=== PATIENT | female | born 1970 | race Caucasian/White ===

== ENCOUNTER → 2016-12-24 | Outpatient (REF) | payer MEDICARE, MEDICAID ==
[~2016-12-24] MED LIST: ATOR1TAB19 PO; GLUC1000 PO; GLUC500T PO; INSUDET SC; LATU20TA PO; TRAZ-136 PO; VICT18IN SC; VITA200028 PO
[2016-12-30 14:15] LABS: O+P EXAM Final report (.)
== END ==
LOC: M LAB REF 10:56
PROVIDERS: ATTEND Internal Medicine Gastroenterology
DX: R19.7 Diarrhea, unspecified (principal)

== ENCOUNTER → 2017-03-04 | Outpatient (REF) ==
--- NOTE | 2017-03-04 21:57 | REP ---
RIGHT HIP, TWO VIEWS: Two views of the right hip are performed. No acute fracture or dislocation is seen. There is linear calcification adjacent to the lesser trochanter of the proximal right femur which may represent an old avulsion fracture or a tendinous calcification. There is slight joint space narrowing with subchondral sclerosis. Signed by Priyank Dejesus MD 03/05/2017 08:32 P
--- NOTE | 2017-03-04 22:00 | REP ---
Partial lumbar spine series: Three views. History: Degenerative disc disease. Findings: Lumbar vertebral body heights are preserved. Alignment is normal. Disc spaces are maintained. There is minimal narrowing of the L4-5 disc. Pedicles and posterior elements are intact. There is a minimal curvature on the frontal radiograph. Sacrum and SI joints are intact. Impression: Minimal narrowing of the L4-5 disc. Minimal levoconvex curve upper lumbar spine. Otherwise negative. Signed by David Corado MD 03/05/2017 08:10 A
== END ==
LOC: M SMT 14:00
PROVIDERS: ATTEND Internal Medicine
DX: Z02.71 Encounter for disability determination (principal)

== ENCOUNTER 2017-03-23 15:13 | Inpatient (IN) | payer MEDICARE, MEDICAID ==
[2017-03-23] MEDS: NS 1,000 ML IV (15:45)
[2017-03-23 16:38] LABS: BASO # 0.1 10^3/uL (0.0-0.2); BASO % 0.4 % (0.0-1.0); EOS # 0.3 10^3/uL (0.0-0.50); EOS % 1.7 % (0.0-3.0); HEMATOCRIT 44.6 % (36.0-47.0); HEMOGLOBIN 15.5 g/dl (12.0-16.0); IMMATURE GRANULOCYTE # 0.1 10^3/uL (0-0); IMMATURE GRANULOCYTE % 0.6 % (0-0); LYMPH # 3.4 10^3/uL (1.5-4.5); LYMPH % 20.7 % (24.0-44.0); MEAN CORPUSCULAR HEMOGLOBIN 28.7 pg (27.0-33.0); MEAN CORPUSCULAR HGB CONC 34.8 g/dl (32.0-36.5); MEAN CORPUSCULAR VOLUME 82.4 fl (80.0-96.0); MONO # 0.6 10^3/uL (0.0-0.8); MONO % 3.8 % (0.0-5.0); NEUTROPHILS # 11.9 10^3/uL (1.8-7.7); NEUTROPHILS % 72.8 % (36.0-66.0); PLATELET COUNT, AUTOMATED 421 10^3/uL (150-450); RED BLOOD COUNT 5.41 10^6/uL (4.00-5.40); WHITE BLOOD COUNT 16.4 10^3/uL (4.0-10.0)
[2017-03-23 16:55] LABS: INR 1.12; PROTHROMBIN TIME 14.6 SECONDS (12.4-14.5)
[2017-03-23 17:00] LABS: PARTIAL THROMBOPLASTIN TIME 26.3 SECONDS (26.8-37.9)
[2017-03-23 17:17] LABS: ALBUMIN 2.5 GM/DL (3.2-5.2); ALBUMIN/GLOBULIN RATIO 0.66 (1.00-1.93); ALKALINE PHOSPHATASE 138 U/L (45-117); ALT/SGPT 13 U/L (12-78); ANION GAP 9 MEQ/L (8-16); AST/SGOT 20 U/L (7-37); BILIRUBIN,DIRECT 0.3 MG/DL (0.0-0.2); BILIRUBIN,TOTAL 0.7 MG/DL (0.2-1.0); BLOOD UREA NITROGEN 3 MG/DL (7-18); CALCIUM LEVEL 8.3 MG/DL (8.5-10.1); CARBON DIOXIDE LEVEL 36 MEQ/L (21-32); CHLORIDE LEVEL 95 MEQ/L (98-107); CPK CREATINE PHOSPHOKINASE 37 U/L (26-192); GLOMERULAR FILTRATION RATE > 60.0 (>58); GLUCOSE, FASTING 191 MG/DL (70-105); SODIUM LEVEL 140 MEQ/L (136-145); TOTAL PROTEIN 6.3 GM/DL (6.4-8.2); TROPONIN I < 0.02 NG/ML (< 0.10)
[2017-03-23 17:23] LABS: POTASSIUM SERUM 1.4 MEQ/L (3.5-5.1)
[2017-03-23] MEDS: POTASSIUM CHL PWD 20 MEQ PACKET PO (17:45)
[2017-03-23] MEDS: KCL 10MEQ IN 100ML SWI (KRUN) 10 MEQ in APPROPRIATE DILUENT 1 EA IV ×2 (17:45→18:08)
[2017-03-23 18:10] LABS: MAGNESIUM LEVEL 2.1 MG/DL (1.8-2.4)
[2017-03-23 19:00] LABS: VITAMIN B12 LEVEL 619 PG/ML (247-911)
[2017-03-23] MEDS: POTASSIUM CHLORIDE 10 MEQ SR TABLET PO (19:30)
[2017-03-23 22:51] LABS: ANION GAP 7 MEQ/L (8-16); BLOOD UREA NITROGEN 4 MG/DL (7-18); CALCIUM LEVEL 7.7 MG/DL (8.5-10.1); CARBON DIOXIDE LEVEL 35 MEQ/L (21-32); CHLORIDE LEVEL 103 MEQ/L (98-107); CREATININE FOR GFR 0.75 MG/DL (0.55-1.02); GLOMERULAR FILTRATION RATE > 60.0 (>58); GLUCOSE, FASTING 145 MG/DL (70-105); MAGNESIUM LEVEL 2.2 MG/DL (1.8-2.4); POTASSIUM SERUM 2.3 MEQ/L (3.5-5.1); SODIUM LEVEL 145 MEQ/L (136-145)
[2017-03-24] MEDS: KCL 10MEQ IN 100ML SWI (KRUN) 10 MEQ in APPROPRIATE DILUENT 1 EA IV ×2 (03:00→05:45)
[2017-03-24] MEDS: KCL 20MEQ IN 0.45NS 1000ML 1,000 ML IV ×2 (03:15→13:33)
[2017-03-24] MEDS ORDERED: ONDANSETRON 4MG/2ML VIAL (J2405) IV (05:15)
[2017-03-24] MEDS ORDERED: ALBUTEROL 90 MCG/ACT 8GM HFA INHALER INH (05:15)
[2017-03-24] MEDS: POTASSIUM CHLORIDE 10 MEQ SR TABLET PO ×6 (06:31→16:38)
[2017-03-24 07:23] LABS: BASO % 0.2 % (0.0-1.0); EOS # 0.3 10^3/uL (0.0-0.50); EOS % 2.5 % (0.0-3.0); HEMATOCRIT 37.5 % (36.0-47.0); IMMATURE GRANULOCYTE # 0.1 10^3/uL (0-0); IMMATURE GRANULOCYTE % 0.6 % (0-0); LYMPH # 2.3 10^3/uL (1.5-4.5); LYMPH % 18.3 % (24.0-44.0); MEAN CORPUSCULAR HEMOGLOBIN 28.7 pg (27.0-33.0); MEAN CORPUSCULAR HGB CONC 33.9 g/dl (32.0-36.5); MEAN CORPUSCULAR VOLUME 84.8 fl (80.0-96.0); MONO # 0.4 10^3/uL (0.0-0.8); MONO % 3.2 % (0.0-5.0); NEUTROPHILS # 9.4 10^3/uL (1.8-7.7); NEUTROPHILS % 75.2 % (36.0-66.0); PLATELET COUNT, AUTOMATED 337 10^3/uL (150-450); RED BLOOD COUNT 4.42 10^6/uL (4.00-5.40); RED CELL DISTRIBUTION WIDTH 14.2 % (11.5-14.5); WHITE BLOOD COUNT 12.5 10^3/uL (4.0-10.0)
[2017-03-24 07:30] LABS: HEMOGLOBIN 12.7 g/dl (12.0-16.0)
[2017-03-24 07:37] LABS: MAGNESIUM LEVEL 2.1 MG/DL (1.8-2.4)
[2017-03-24 07:41] LABS: ANION GAP 8 MEQ/L (8-16); BLOOD UREA NITROGEN 4 MG/DL (7-18); CALCIUM LEVEL 7.6 MG/DL (8.5-10.1); CARBON DIOXIDE LEVEL 35 MEQ/L (21-32); CHLORIDE LEVEL 101 MEQ/L (98-107); GLOMERULAR FILTRATION RATE > 60.0 (>58); GLUCOSE, FASTING 189 MG/DL (70-105); POTASSIUM SERUM 2.4 MEQ/L (3.5-5.1); SODIUM LEVEL 144 MEQ/L (136-145)
[2017-03-24] MEDS: glipiZIDE (GLUCOTROL) 5 MG TAB PO (07:55)
[2017-03-24] MEDS ORDERED: GLUCOSE 4 GM CHEW TABLET PO (08:00)
[2017-03-24] MEDS ORDERED: GLUCAGON FOR INJ 1 MG VIAL (J1610) SC (08:00)
[2017-03-24] MEDS ORDERED: DEXTROSE 50% 50 ML SYRINGE IV (08:00)
[2017-03-24] MEDS: ENOXAPARIN 40 MG/0.4 ML SYRINGE (J1650) SC (08:55)
[2017-03-24] MEDS: traMADol 50 MG TAB PO (08:56)
[2017-03-24 12:11] LABS: BEDSIDE GLUCOSE 116 MG/DL (70-105)
[2017-03-24 14:18] LABS: POTASSIUM SERUM 2.8 MEQ/L (3.5-5.1)
[2017-03-24 16:55] LABS: BEDSIDE GLUCOSE 141 MG/DL (70-105)
[2017-03-24] MEDS: ATORVASTATIN 10 MG TAB PO (20:10)
[2017-03-24 22:29] LABS: POTASSIUM SERUM 3.1 MEQ/L (3.5-5.1)
[2017-03-25] MEDS: POTASSIUM CHLORIDE 10 MEQ SR TABLET PO ×2 (01:19→02:23)
[2017-03-25] MEDS: KCL 20MEQ IN 0.45NS 1000ML 1,000 ML IV (02:24)
[2017-03-25 07:07] LABS: BEDSIDE GLUCOSE 100 MG/DL (70-105)
[2017-03-25 07:17] LABS: BASO % 0.2 % (0.0-1.0); EOS # 0.3 10^3/uL (0.0-0.50); HEMATOCRIT 35.5 % (36.0-47.0); HEMOGLOBIN 11.8 g/dl (12.0-16.0); IMMATURE GRANULOCYTE % 0.4 % (0-0); LYMPH # 2.5 10^3/uL (1.5-4.5); MEAN CORPUSCULAR HEMOGLOBIN 28.6 pg (27.0-33.0); MEAN CORPUSCULAR HGB CONC 33.2 g/dl (32.0-36.5); MEAN CORPUSCULAR VOLUME 86.2 fl (80.0-96.0); MONO # 0.3 10^3/uL (0.0-0.8); MONO % 2.9 % (0.0-5.0); NEUTROPHILS # 5.8 10^3/uL (1.8-7.7); NEUTROPHILS % 65.5 % (36.0-66.0); PLATELET COUNT, AUTOMATED 273 10^3/uL (150-450); RED BLOOD COUNT 4.12 10^6/uL (4.00-5.40); RED CELL DISTRIBUTION WIDTH 14.5 % (11.5-14.5); WHITE BLOOD COUNT 8.9 10^3/uL (4.0-10.0)
[2017-03-25 07:59] LABS: ANION GAP 7 MEQ/L (8-16); BLOOD UREA NITROGEN 3 MG/DL (7-18); CALCIUM LEVEL 7.7 MG/DL (8.5-10.1); CARBON DIOXIDE LEVEL 31 MEQ/L (21-32); CHLORIDE LEVEL 109 MEQ/L (98-107); CREATININE FOR GFR 0.53 MG/DL (0.55-1.02); GLOMERULAR FILTRATION RATE > 60.0 (>58); GLUCOSE, FASTING 97 MG/DL (70-105); POTASSIUM SERUM 4.2 MEQ/L (3.5-5.1); SODIUM LEVEL 147 MEQ/L (136-145)
[2017-03-25] MEDS: glipiZIDE (GLUCOTROL) 5 MG TAB PO (08:47)
[2017-03-25] MEDS: ENOXAPARIN 40 MG/0.4 ML SYRINGE (J1650) SC (08:48)
[2017-03-25] MEDS: traMADol 50 MG TAB PO (08:48)
[2017-03-25] MEDS ORDERED: GLUCAGON FOR INJ 1 MG VIAL (J1610) SC (11:30)
[2017-03-25] MEDS ORDERED: GLUCOSE 4 GM CHEW TABLET PO (11:30)
[2017-03-25] MEDS ORDERED: DEXTROSE 50% 50 ML SYRINGE IV (11:30)
[2017-03-25 12:58] LABS: BEDSIDE GLUCOSE 140 MG/DL (70-105)
[2017-03-25] MEDS: HumaLOG INSULIN (NovoLOG) PER UNIT SC ×3 (13:16→21:41)
[2017-03-25 16:47] LABS: BEDSIDE GLUCOSE 179 MG/DL (70-105)
[2017-03-25] MEDS: BISACODYL 5 MG TAB PO (18:06)
[2017-03-25] MEDS: GOLYTELY SOLN 4000 ML BTL PO (18:07)
[2017-03-25 21:08] LABS: BEDSIDE GLUCOSE 175 MG/DL (70-105)
[2017-03-25] MEDS: ATORVASTATIN 10 MG TAB PO (21:26)
[2017-03-25] MEDS: GASTROGRAFIN SOLUTION 30ML (Q9963) PO (21:26)
[2017-03-25 22:04] LABS: ANION GAP 7 MEQ/L (8-16); BLOOD UREA NITROGEN 4 MG/DL (7-18); CALCIUM LEVEL 7.9 MG/DL (8.5-10.1); CARBON DIOXIDE LEVEL 31 MEQ/L (21-32); CHLORIDE LEVEL 107 MEQ/L (98-107); CREATININE FOR GFR 0.52 MG/DL (0.55-1.02); GLOMERULAR FILTRATION RATE > 60.0 (>58); GLUCOSE, FASTING 139 MG/DL (70-105); MAGNESIUM LEVEL 2.1 MG/DL (1.8-2.4); POTASSIUM SERUM 3.9 MEQ/L (3.5-5.1); SODIUM LEVEL 145 MEQ/L (136-145)
[2017-03-25 22:56] LABS: OSMOLALITY URINE 170 MOSM/KG (500-800)
[2017-03-25 23:05] LABS: CREATININE,RANDOM URINE 28.3 MG/DL; POTASSIUM RANDOM URINE 21.3 MEQ/L; SODIUM,RANDOM URINE 29 MEQ/L
[2017-03-25 23:14] LABS: APPEARANCE, URINE CLEAR (CLEAR); BACTERIA, URINE AUTO 1+ (NEGATIVE); BILIRUBIN, URINE AUTO NEGATIVE (NEGATIVE); BLOOD, URINE BLOOD 1+ (NEGATIVE); COLOR, URINE YELLOW (YELLOW); GLUCOSE, URINE (UA) AUTO NEGATIVE (NEGATIVE); KETONE, URINE AUTO NEGATIVE (NEGATIVE); LEUKOCYTE ESTERASE, URINE AUTO 2+ (NEGATIVE); NITRITE, URINE AUTO NEGATIVE (NEGATIVE); PROTEIN, URINE AUTO NEGATIVE (NEGATIVE); RBC, URINE AUTO 1 /HPF (0-3); SPECIFIC GRAVITY URINE AUTO 1.004 (1.002-1.035); SQUAMOUS EPITHELIAL CELL UR AU 2 /HPF (0-6); UROBILINOGEN, URINE AUTO 0.2 mg/dL (0.0-2.0); WBC, URINE AUTO 35 /HPF (0-3)
[2017-03-26 05:53] LABS: BASO % 0.2 % (0.0-1.0); EOS # 0.3 10^3/uL (0.0-0.50); EOS % 2.2 % (0.0-3.0); HEMATOCRIT 34.9 % (36.0-47.0); HEMOGLOBIN 11.7 g/dl (12.0-16.0); IMMATURE GRANULOCYTE # 0.1 10^3/uL (0-0); IMMATURE GRANULOCYTE % 0.6 % (0-0); LYMPH # 2.2 10^3/uL (1.5-4.5); LYMPH % 17.8 % (24.0-44.0); MEAN CORPUSCULAR HEMOGLOBIN 28.7 pg (27.0-33.0); MEAN CORPUSCULAR HGB CONC 33.5 g/dl (32.0-36.5); MEAN CORPUSCULAR VOLUME 85.7 fl (80.0-96.0); MONO # 0.4 10^3/uL (0.0-0.8); MONO % 3.4 % (0.0-5.0); NEUTROPHILS # 9.3 10^3/uL (1.8-7.7); NEUTROPHILS % 75.8 % (36.0-66.0); PLATELET COUNT, AUTOMATED 255 10^3/uL (150-450); RED BLOOD COUNT 4.07 10^6/uL (4.00-5.40); RED CELL DISTRIBUTION WIDTH 14.6 % (11.5-14.5); WHITE BLOOD COUNT 12.3 10^3/uL (4.0-10.0)
[2017-03-26 06:21] LABS: ANION GAP 8 MEQ/L (8-16); BLOOD UREA NITROGEN 3 MG/DL (7-18); CALCIUM LEVEL 7.5 MG/DL (8.5-10.1); CARBON DIOXIDE LEVEL 29 MEQ/L (21-32); CHLORIDE LEVEL 106 MEQ/L (98-107); CREATININE FOR GFR 0.47 MG/DL (0.55-1.02); GLOMERULAR FILTRATION RATE > 60.0 (>58); GLUCOSE, FASTING 78 MG/DL (70-105); POTASSIUM SERUM 3.3 MEQ/L (3.5-5.1); SODIUM LEVEL 143 MEQ/L (136-145)
[2017-03-26] MEDS ORDERED: KCL 10MEQ IN 100ML SWI (KRUN) 10 MEQ in APPROPRIATE DILUENT 1 EA IV (08:00)
[2017-03-26] MEDS: HumaLOG INSULIN (NovoLOG) PER UNIT SC ×4 (08:15→21:00)
[2017-03-26] MEDS: CIPROFLOXACIN 400 MG in APPROPRIATE DILUENT 1 EA IV ×2 (08:46→21:10)
[2017-03-26] MEDS: POTASSIUM CHLORIDE 10 MEQ SR TABLET PO ×3 (10:00→18:45)
[2017-03-26] MEDS: metroNIDAZOLE 500 MG in APPROPRIATE DILUENT 1 EA IV ×2 (11:30→17:13)
[2017-03-26 11:46] LABS: BEDSIDE GLUCOSE 90 MG/DL (70-105)
[2017-03-26] MEDS ORDERED: LIDOCAINE 2% INJ 100 MG/5 ML SYRINGE As Ordered (15:20)
[2017-03-26] MEDS ORDERED: PROPOFOL 500 MG/50 ML VIAL As Ordered (15:20)
[2017-03-26] MEDS ORDERED: PHENYLephrine HCL 500 MCG/5 ML (100MCG/ML) SYRINGE (J2370) As Ordered (15:30)
[2017-03-26] MEDS ORDERED: PROPOFOL 200 MG/20 ML VIAL As Ordered ×2 (16:01→16:02)
[2017-03-26] MEDS: traMADol 50 MG TAB PO (17:27)
[2017-03-26 17:42] LABS: BEDSIDE GLUCOSE 145 MG/DL (70-105)
[2017-03-26] MEDS: ATORVASTATIN 10 MG TAB PO (21:21)
[2017-03-26 21:24] LABS: BEDSIDE GLUCOSE 192 MG/DL (70-105)
[2017-03-27] MEDS: metroNIDAZOLE 500 MG in APPROPRIATE DILUENT 1 EA IV ×3 (01:21→16:29)
[2017-03-27 05:38] LABS: BASO % 0.2 % (0.0-1.0); EOS % 0.6 % (0.0-3.0); HEMATOCRIT 30.7 % (36.0-47.0); HEMOGLOBIN 10.3 g/dl (12.0-16.0); IMMATURE GRANULOCYTE % 0.4 % (0-0); LYMPH # 0.8 10^3/uL (1.5-4.5); LYMPH % 15.3 % (24.0-44.0); MEAN CORPUSCULAR HEMOGLOBIN 28.6 pg (27.0-33.0); MEAN CORPUSCULAR HGB CONC 33.6 g/dl (32.0-36.5); MEAN CORPUSCULAR VOLUME 85.3 fl (80.0-96.0); MONO # 0.2 10^3/uL (0.0-0.8); MONO % 4.1 % (0.0-5.0); NEUTROPHILS # 4.3 10^3/uL (1.8-7.7); NEUTROPHILS % 79.4 % (36.0-66.0); PLATELET COUNT, AUTOMATED 172 10^3/uL (150-450); RED CELL DISTRIBUTION WIDTH 14.9 % (11.5-14.5); WHITE BLOOD COUNT 5.4 10^3/uL (4.0-10.0)
[2017-03-27 06:02] LABS: ANION GAP 7 MEQ/L (8-16); BLOOD UREA NITROGEN 3 MG/DL (7-18); CALCIUM LEVEL 7.3 MG/DL (8.5-10.1); CARBON DIOXIDE LEVEL 29 MEQ/L (21-32); CHLORIDE LEVEL 107 MEQ/L (98-107); CREATININE FOR GFR 0.54 MG/DL (0.55-1.02); GLOMERULAR FILTRATION RATE > 60.0 (>58); GLUCOSE, FASTING 100 MG/DL (70-105); POTASSIUM SERUM 3.2 MEQ/L (3.5-5.1); SODIUM LEVEL 143 MEQ/L (136-145)
[2017-03-27] MEDS: HumaLOG INSULIN (NovoLOG) PER UNIT SC ×4 (07:30→21:00)
[2017-03-27] MEDS: traMADol 50 MG TAB PO (08:22)
[2017-03-27] MEDS: POTASSIUM CHLORIDE 10 MEQ SR TABLET PO ×3 (08:23→21:50)
[2017-03-27] MEDS: CIPROFLOXACIN 400 MG in APPROPRIATE DILUENT 1 EA IV (08:23)
[2017-03-27] MEDS: ENOXAPARIN 40 MG/0.4 ML SYRINGE (J1650) SC (10:12)
[2017-03-27 11:57] LABS: BEDSIDE GLUCOSE 96 MG/DL (70-105)
[2017-03-27] MEDS ORDERED: GASTROGRAFIN SOLUTION 30ML (Q9963) As Ordered (13:10)
[2017-03-27] MEDS ORDERED: SLF 3 ML SYR IV ×3 (14:15→22:00)
[2017-03-27 16:53] LABS: BEDSIDE GLUCOSE 96 MG/DL (70-105)
[2017-03-27] MEDS: CIPROFLOXACIN 500 MG TAB PO (17:36)
[2017-03-27 20:56] LABS: BEDSIDE GLUCOSE 103 MG/DL (70-105)
[2017-03-27] MEDS: ATORVASTATIN 10 MG TAB PO (21:49)
[2017-03-27] MEDS: metroNIDAZOLE (FLAGYL) 500 MG TAB PO (21:49)
[2017-03-27] MEDS: SLF 3 ML SYR IV (21:51)
[2017-03-28] MEDS: metroNIDAZOLE (FLAGYL) 500 MG TAB PO ×3 (05:26→21:00)
[2017-03-28] MEDS: SLF 3 ML SYR IV ×3 (05:26→21:01)
[2017-03-28] MEDS: CIPROFLOXACIN 500 MG TAB PO ×2 (05:26→17:38)
[2017-03-28 05:55] LABS: BASO % 0.2 % (0.0-1.0); EOS # 0.2 10^3/uL (0.0-0.50); HEMATOCRIT 35.1 % (36.0-47.0); HEMOGLOBIN 11.6 g/dl (12.0-16.0); IMMATURE GRANULOCYTE % 0.5 % (0-0); LYMPH # 0.9 10^3/uL (1.5-4.5); LYMPH % 20.4 % (24.0-44.0); MEAN CORPUSCULAR HEMOGLOBIN 28.6 pg (27.0-33.0); MEAN CORPUSCULAR VOLUME 86.5 fl (80.0-96.0); MONO # 0.2 10^3/uL (0.0-0.8); MONO % 5.7 % (0.0-5.0); NEUTROPHILS # 2.9 10^3/uL (1.8-7.7); NEUTROPHILS % 69.2 % (36.0-66.0); PLATELET COUNT, AUTOMATED 196 10^3/uL (150-450); RED BLOOD COUNT 4.06 10^6/uL (4.00-5.40); RED CELL DISTRIBUTION WIDTH 15.1 % (11.5-14.5); WHITE BLOOD COUNT 4.2 10^3/uL (4.0-10.0)
[2017-03-28 06:13] LABS: ANION GAP 5 MEQ/L (8-16); BLOOD UREA NITROGEN 3 MG/DL (7-18); CALCIUM LEVEL 7.8 MG/DL (8.5-10.1); CARBON DIOXIDE LEVEL 29 MEQ/L (21-32); CHLORIDE LEVEL 111 MEQ/L (98-107); CREATININE FOR GFR 0.54 MG/DL (0.55-1.02); GLOMERULAR FILTRATION RATE > 60.0 (>58); GLUCOSE, FASTING 98 MG/DL (70-105); SODIUM LEVEL 145 MEQ/L (136-145)
[2017-03-28] MEDS: HumaLOG INSULIN (NovoLOG) PER UNIT SC ×4 (08:16→20:44)
[2017-03-28] MEDS: ENOXAPARIN 40 MG/0.4 ML SYRINGE (J1650) SC (09:00)
[2017-03-28] MEDS: traMADol 50 MG TAB PO (10:12)
[2017-03-28] MEDS: POTASSIUM CHLORIDE 10 MEQ SR TABLET PO (10:12)
[2017-03-28 12:11] LABS: BEDSIDE GLUCOSE 142 MG/DL (70-105)
[2017-03-28 17:02] LABS: BEDSIDE GLUCOSE 87 MG/DL (70-105)
[2017-03-28 20:49] LABS: BEDSIDE GLUCOSE 115 MG/DL (70-105)
[2017-03-28] MEDS: ATORVASTATIN 10 MG TAB PO (21:00)
[2017-03-29] MEDS: CIPROFLOXACIN 500 MG TAB PO ×2 (05:00→17:35)
[2017-03-29] MEDS: metroNIDAZOLE (FLAGYL) 500 MG TAB PO ×3 (05:00→21:13)
[2017-03-29] MEDS: SLF 3 ML SYR IV ×3 (05:00→21:12)
[2017-03-29 06:10] LABS: BASO % 0.8 % (0.0-1.0); EOS # 0.2 10^3/uL (0.0-0.50); EOS % 6.4 % (0.0-3.0); HEMOGLOBIN 10.8 g/dl (12.0-16.0); LYMPH # 1.3 10^3/uL (1.5-4.5); LYMPH % 36.6 % (24.0-44.0); MEAN CORPUSCULAR HEMOGLOBIN 28.4 pg (27.0-33.0); MEAN CORPUSCULAR HGB CONC 32.7 g/dl (32.0-36.5); MEAN CORPUSCULAR VOLUME 86.8 fl (80.0-96.0); MONO # 0.2 10^3/uL (0.0-0.8); MONO % 6.4 % (0.0-5.0); NEUTROPHILS # 1.8 10^3/uL (1.8-7.7); NEUTROPHILS % 49.8 % (36.0-66.0); PLATELET COUNT, AUTOMATED 209 10^3/uL (150-450); RED CELL DISTRIBUTION WIDTH 15.2 % (11.5-14.5); WHITE BLOOD COUNT 3.6 10^3/uL (4.0-10.0)
[2017-03-29 06:37] LABS: ANION GAP 6 MEQ/L (8-16); BLOOD UREA NITROGEN 3 MG/DL (7-18); CALCIUM LEVEL 7.6 MG/DL (8.5-10.1); CARBON DIOXIDE LEVEL 29 MEQ/L (21-32); CHLORIDE LEVEL 111 MEQ/L (98-107); CREATININE FOR GFR 0.52 MG/DL (0.55-1.02); GLOMERULAR FILTRATION RATE > 60.0 (>58); GLUCOSE, FASTING 100 MG/DL (70-105); POTASSIUM SERUM 3.7 MEQ/L (3.5-5.1); SODIUM LEVEL 146 MEQ/L (136-145)
[2017-03-29] MEDS: HumaLOG INSULIN (NovoLOG) PER UNIT SC ×4 (07:24→20:40)
[2017-03-29 08:13] LABS: MAGNESIUM LEVEL 1.9 MG/DL (1.8-2.4)
[2017-03-29] MEDS: POTASSIUM CHLORIDE 10 MEQ SR TABLET PO ×2 (08:37→17:36)
[2017-03-29] MEDS: traMADol 50 MG TAB PO (08:37)
[2017-03-29 10:08] LABS: COPPER PLASMA 83 ug/dL (72-166); LEAD BLOOD ADULT 2 ug/dL (0-19); MERCURY LEVEL None Detected ug/L (0.0-14.9); VITAMIN B1 LEVEL WHOLE BLOOD 99.1 nmol/L (66.5-200.0); VITAMIN E LEVEL 7.5 mg/L (5.3-16.8)
[2017-03-29 11:43] LABS: BEDSIDE GLUCOSE 135 MG/DL (70-105)
[2017-03-29 16:46] LABS: BEDSIDE GLUCOSE 100 MG/DL (70-105)
[2017-03-29 20:36] LABS: BEDSIDE GLUCOSE 126 MG/DL (70-105)
[2017-03-29] MEDS: ATORVASTATIN 10 MG TAB PO (21:13)
[2017-03-30] MEDS: CIPROFLOXACIN 500 MG TAB PO ×2 (06:21→17:22)
[2017-03-30] MEDS: SLF 3 ML SYR IV ×3 (06:21→21:12)
[2017-03-30] MEDS: metroNIDAZOLE (FLAGYL) 500 MG TAB PO ×3 (06:21→21:14)
[2017-03-30 06:55] LABS: BASO % 0.4 % (0.0-1.0); EOS # 0.3 10^3/uL (0.0-0.50); EOS % 5.8 % (0.0-3.0); HEMATOCRIT 39.7 % (36.0-47.0); IMMATURE GRANULOCYTE % 0.5 % (0-0); LYMPH # 2.1 10^3/uL (1.5-4.5); LYMPH % 38.6 % (24.0-44.0); MEAN CORPUSCULAR HEMOGLOBIN 28.6 pg (27.0-33.0); MEAN CORPUSCULAR HGB CONC 32.7 g/dl (32.0-36.5); MEAN CORPUSCULAR VOLUME 87.4 fl (80.0-96.0); MONO # 0.3 10^3/uL (0.0-0.8); MONO % 6.1 % (0.0-5.0); NEUTROPHILS # 2.7 10^3/uL (1.8-7.7); NEUTROPHILS % 48.6 % (36.0-66.0); PLATELET COUNT, AUTOMATED 322 10^3/uL (150-450); RED BLOOD COUNT 4.54 10^6/uL (4.00-5.40); RED CELL DISTRIBUTION WIDTH 15.6 % (11.5-14.5); WHITE BLOOD COUNT 5.6 10^3/uL (4.0-10.0)
[2017-03-30 07:11] LABS: ANION GAP 7 MEQ/L (8-16); BLOOD UREA NITROGEN 2 MG/DL (7-18); CALCIUM LEVEL 8.1 MG/DL (8.5-10.1); CARBON DIOXIDE LEVEL 28 MEQ/L (21-32); CHLORIDE LEVEL 111 MEQ/L (98-107); CREATININE FOR GFR 0.64 MG/DL (0.55-1.02); GLOMERULAR FILTRATION RATE > 60.0 (>58); GLUCOSE, FASTING 99 MG/DL (70-105); MAGNESIUM LEVEL 2.1 MG/DL (1.8-2.4); SODIUM LEVEL 146 MEQ/L (136-145)
[2017-03-30] MEDS: HumaLOG INSULIN (NovoLOG) PER UNIT SC ×4 (07:22→20:51)
[2017-03-30] MEDS ORDERED: GASTROGRAFIN SOLUTION 30ML (Q9963) As Ordered (07:45)
[2017-03-30] MEDS: ENOXAPARIN 40 MG/0.4 ML SYRINGE (J1650) SC (09:00)
[2017-03-30] MEDS: ACETAMINOPHEN TAB 650MG DOSE (2X325MG) PO (09:44)
[2017-03-30] MEDS: POTASSIUM CHLORIDE 10 MEQ SR TABLET PO (09:45)
[2017-03-30] MEDS: traMADol 50 MG TAB PO (10:09)
[2017-03-30 12:06] LABS: BEDSIDE GLUCOSE 116 MG/DL (70-105)
[2017-03-30 17:12] LABS: BEDSIDE GLUCOSE 96 MG/DL (70-105)
[2017-03-30] MEDS: ATORVASTATIN 10 MG TAB PO (21:14)
[2017-03-30 21:21] LABS: BEDSIDE GLUCOSE 118 MG/DL (70-105)
[2017-03-31] MEDS: SLF 3 ML SYR IV ×3 (05:52→20:55)
[2017-03-31] MEDS: metroNIDAZOLE (FLAGYL) 500 MG TAB PO ×3 (06:00→20:54)
[2017-03-31] MEDS: CIPROFLOXACIN 500 MG TAB PO ×2 (06:00→17:43)
[2017-03-31] MEDS: HumaLOG INSULIN (NovoLOG) PER UNIT SC ×4 (07:30→20:51)
[2017-03-31 08:38] LABS: ANION GAP 5 MEQ/L (8-16); BLOOD UREA NITROGEN 2 MG/DL (7-18); CALCIUM LEVEL 7.9 MG/DL (8.5-10.1); CARBON DIOXIDE LEVEL 27 MEQ/L (21-32); CHLORIDE LEVEL 110 MEQ/L (98-107); CREATININE FOR GFR 0.62 MG/DL (0.55-1.02); GLOMERULAR FILTRATION RATE > 60.0 (>58); GLUCOSE, FASTING 97 MG/DL (70-105); MAGNESIUM LEVEL 1.9 MG/DL (1.8-2.4); POTASSIUM SERUM 3.9 MEQ/L (3.5-5.1); SODIUM LEVEL 142 MEQ/L (136-145)
[2017-03-31] MEDS: POTASSIUM CHLORIDE 10 MEQ SR TABLET PO (09:10)
[2017-03-31] MEDS: traMADol 50 MG TAB PO (09:11)
[2017-03-31] MEDS: ENOXAPARIN 40 MG/0.4 ML SYRINGE (J1650) SC (09:12)
[2017-03-31 12:04] LABS: BEDSIDE GLUCOSE 156 MG/DL (70-105)
[2017-03-31 16:43] LABS: BEDSIDE GLUCOSE 104 MG/DL (70-105)
[2017-03-31] MEDS: ATORVASTATIN 10 MG TAB PO (20:55)
[2017-04-01] MEDS: SLF 3 ML SYR IV ×3 (05:55→21:31)
[2017-04-01] MEDS: CIPROFLOXACIN 500 MG TAB PO ×2 (05:56→17:50)
[2017-04-01] MEDS: metroNIDAZOLE (FLAGYL) 500 MG TAB PO ×3 (05:56→21:37)
[2017-04-01 06:32] LABS: MAGNESIUM LEVEL 2.2 MG/DL (1.8-2.4)
[2017-04-01] MEDS: HumaLOG INSULIN (NovoLOG) PER UNIT SC ×4 (07:22→21:00)
[2017-04-01 08:34] LABS: BEDSIDE GLUCOSE 99 MG/DL (70-105)
[2017-04-01 08:34] LABS: BEDSIDE GLUCOSE 83 MG/DL (70-105)
[2017-04-01] MEDS: ENOXAPARIN 40 MG/0.4 ML SYRINGE (J1650) SC (09:00)
[2017-04-01] MEDS: traMADol 50 MG TAB PO (09:13)
[2017-04-01] MEDS: POTASSIUM CHLORIDE 10 MEQ SR TABLET PO (09:14)
[2017-04-01] MEDS: SODIUM CHLORIDE 0.9% 1000 ML IV (14:15)
[2017-04-01] MEDS: ATORVASTATIN 10 MG TAB PO (21:37)
[2017-04-01] MEDS: ACETAMINOPHEN TAB 650MG DOSE (2X325MG) PO (21:37)
[2017-04-02] MEDS: SLF 3 ML SYR IV ×2 (06:00→14:18)
[2017-04-02] MEDS: CIPROFLOXACIN 500 MG TAB PO (06:32)
[2017-04-02] MEDS: metroNIDAZOLE (FLAGYL) 500 MG TAB PO ×2 (06:32→14:38)
[2017-04-02 07:03] LABS: MAGNESIUM LEVEL 2.1 MG/DL (1.8-2.4)
[2017-04-02] MEDS: traMADol 50 MG TAB PO (09:33)
[2017-04-02] MEDS: HumaLOG INSULIN (NovoLOG) PER UNIT SC ×2 (09:34→12:49)
[2017-04-02] MEDS: POTASSIUM CHLORIDE 10 MEQ SR TABLET PO (09:34)
[2017-04-02] MEDS: ENOXAPARIN 40 MG/0.4 ML SYRINGE (J1650) SC (09:34)
[2017-04-02 13:36] LABS: BEDSIDE GLUCOSE 144 MG/DL (70-105)
[2017-04-02 13:37] LABS: BEDSIDE GLUCOSE 72 MG/DL (70-105)
[2017-04-02 13:37] LABS: BEDSIDE GLUCOSE 128 MG/DL (70-105)
[2017-04-02 13:37] LABS: BEDSIDE GLUCOSE 140 MG/DL (70-105)
[2017-04-02 13:37] LABS: BEDSIDE GLUCOSE 88 MG/DL (70-105)
[2017-04-02 13:37] LABS: BEDSIDE GLUCOSE 106 MG/DL (70-105)
[2017-04-02 13:37] LABS: BEDSIDE GLUCOSE 124 MG/DL (70-105)
== END 2017-04-02 16:14 | disposition home or self-care (01) | DRG 392 ==
LOC: M MSPAV 03-27 15:13 → M ED INP 03-24 01:14 → M PCU 03-24 14:49 → M ED 15:13
PROC: 0DB98ZX Excision of Duodenum, Via Natural or Artificial Opening Endoscopic, Diagnostic (ICD-10-PCS; principal; 2017-03-26 14:30)
PROC: 0DBN8ZZ Excision of Sigmoid Colon, Via Natural or Artificial Opening Endoscopic (ICD-10-PCS; 2017-03-26 14:30)
DX: R19.7 Diarrhea, unspecified (principal); E87.6 Hypokalemia; E11.9 Type 2 diabetes mellitus without complications; E78.5 Hyperlipidemia, unspecified; J45.909 Unspecified asthma, uncomplicated; Z79.84 Long term (current) use of oral hypoglycemic drugs; Z79.899 Other long term (current) drug therapy; Z88.0 Allergy status to penicillin; Z91.018 Allergy to other foods; Z88.8 Allergy status to other drugs, medicaments and biological substances; K44.9 Diaphragmatic hernia without obstruction or gangrene; K57.30 Diverticulosis of large intestine without perforation or abscess without bleeding; D12.5 Benign neoplasm of sigmoid colon; K64.8 Other hemorrhoids; K64.4 Residual hemorrhoidal skin tags

== ENCOUNTER 2017-04-19 19:52 | Emergency (ER) | payer MEDICARE, MEDICAID ==
[2017-04-19 20:46] LABS: HEMATOCRIT 41.2 % (36.0-47.0); HEMOGLOBIN 14.1 g/dl (12.0-16.0); MEAN CORPUSCULAR HEMOGLOBIN 30.3 pg (27.0-33.0); MEAN CORPUSCULAR HGB CONC 34.2 g/dl (32.0-36.5); MEAN CORPUSCULAR VOLUME 88.6 fl (80.0-96.0); PLATELET COUNT, AUTOMATED 340 10^3/uL (150-450); RED BLOOD COUNT 4.65 10^6/uL (4.00-5.40); RED CELL DISTRIBUTION WIDTH 16.9 % (11.5-14.5); WHITE BLOOD COUNT 11.4 10^3/uL (4.0-10.0)
[2017-04-19 21:07] LABS: ANION GAP 7 MEQ/L (8-16); BLOOD UREA NITROGEN 5 MG/DL (7-18); CALCIUM LEVEL 8.7 MG/DL (8.5-10.1); CARBON DIOXIDE LEVEL 33 MEQ/L (21-32); CHLORIDE LEVEL 101 MEQ/L (98-107); CREATININE FOR GFR 0.65 MG/DL (0.55-1.30); GLOMERULAR FILTRATION RATE > 60.0 (>58); GLUCOSE, FASTING 250 MG/DL (70-100); POTASSIUM SERUM 2.8 MEQ/L (3.5-5.1); SODIUM LEVEL 141 MEQ/L (136-145)
[2017-04-19 21:30] LABS: APPEARANCE, URINE HAZY (CLEAR); BACTERIA, URINE AUTO NEGATIVE (NEGATIVE); BILIRUBIN, URINE AUTO 1+ (NEGATIVE); BLOOD, URINE BLOOD NEGATIVE (NEGATIVE); CALCIUM OXALATE CRYSTALS MODERATE; COLOR, URINE AMBER (YELLOW); GLUCOSE, URINE (UA) AUTO NEGATIVE (NEGATIVE); KETONE, URINE AUTO NEGATIVE (NEGATIVE); LEUKOCYTE ESTERASE, URINE AUTO TRACE (NEGATIVE); MUCUS, URINE SMALL (NEGATIVE); NITRITE, URINE AUTO NEGATIVE (NEGATIVE); PROTEIN, URINE AUTO NEGATIVE (NEGATIVE); RBC, URINE AUTO 2 /HPF (0-3); SPECIFIC GRAVITY URINE AUTO 1.016 (1.002-1.035); SQUAMOUS EPITHELIAL CELL UR AU 4 /HPF (0-6); WBC, URINE AUTO 11 /HPF (0-3)
[2017-04-19 21:34] LABS: BASO % 0.4 % (0.0-1.0); EOS # 0.1 10^3/uL (0.0-0.50); IMMATURE GRANULOCYTE % 0.4 % (0-0); LYMPH % 8.5 % (24.0-44.0); MONO # 0.4 10^3/uL (0.0-0.8); MONO % 3.3 % (0.0-5.0); NEUTROPHILS # 9.7 10^3/uL (1.8-7.7); NEUTROPHILS % 86.4 % (36.0-66.0)
[2017-04-19 21:38] LABS: MAGNESIUM LEVEL 2.2 MG/DL (1.8-2.4)
[2017-04-19] MEDS: ONDANSETRON 4 MG ORAL DISINTEGRATING TAB (S0181) PO (22:01)
[2017-04-19] MEDS: metroNIDAZOLE (FLAGYL) 500 MG TAB PO (22:02)
[2017-04-19] MEDS: POTASSIUM CHLORIDE 10 MEQ SR TABLET PO (22:02)
[2017-04-19] MEDS: LevoFLOXacin 750 MG TABLET PO (22:02)
[2017-04-19] MEDS: PERCOCET 5MG/325MG TAB PO (22:05)
== END 2017-04-19 22:50 | disposition home or self-care (01) ==
LOC: M ED 19:52
DX: K57.32 Diverticulitis of large intestine without perforation or abscess without bleeding (principal); E87.6 Hypokalemia; E11.9 Type 2 diabetes mellitus without complications; F31.9 Bipolar disorder, unspecified; F41.9 Anxiety disorder, unspecified; F25.9 Schizoaffective disorder, unspecified; J45.909 Unspecified asthma, uncomplicated; G89.29 Other chronic pain; M54.5 Low back pain; Z79.899 Other long term (current) drug therapy; Z79.51 Long term (current) use of inhaled steroids; Z79.84 Long term (current) use of oral hypoglycemic drugs; Z88.0 Allergy status to penicillin; Z88.8 Allergy status to other drugs, medicaments and biological substances; Z91.018 Allergy to other foods; F17.210 Nicotine dependence, cigarettes, uncomplicated
CPT/HCPCS: 83735

== ENCOUNTER → 2018-05-11 | Outpatient (REF) | payer OTHER, MEDICAID ==
[~2018-05-11] MED LIST changes: +BACITAB PO; +BREO1INH PO; +CIPR500T3 PO; +ERGO500014 PO; +FLAG500T PO; +GLIP5TAB8 PO; +IMOD2TAB16 PO; +KLOR10TA76 PO; +LEVO750T13 PO; +METR-201 PO; +POTA1TAB14 PO; +TRAM50TA2 PO; -TRAZ-136 PO; +TRAZ-163 PO; +VENTAER PO
[2018-05-11 13:34] LABS: BASO % 0.4 % (0.0-1.0); EOS # 0.4 10^3/uL (0.0-0.50); HEMATOCRIT 45.3 % (36.0-47.0); HEMOGLOBIN 15.3 g/dl (12.0-15.5); LYMPH # 1.8 10^3/uL (1.5-4.5); LYMPH % 19.1 % (24.0-44.0); MEAN CORPUSCULAR HEMOGLOBIN 28.1 pg (27.0-33.0); MEAN CORPUSCULAR HGB CONC 33.8 g/dl (32.0-36.5); MEAN CORPUSCULAR VOLUME 83.1 fl (80.0-96.0); MONO # 0.4 10^3/uL (0.0-0.8); MONO % 4.1 % (0.0-5.0); NEUTROPHILS # 6.8 10^3/uL (1.8-7.7); PLATELET COUNT, AUTOMATED 231 10^3/uL (150-450); RED BLOOD COUNT 5.45 10^6/uL (4.00-5.40); WHITE BLOOD COUNT 9.5 10^3/uL (4.0-10.0)
[2018-05-11 14:04] LABS: HEMOGLOBIN A1c 8.7 %
[2018-05-11 14:36] LABS: ALBUMIN 3.6 GM/DL (3.2-5.2); ALT/SGPT 15 U/L (12-78); BILIRUBIN,TOTAL 0.5 MG/DL (0.2-1.0); BLOOD UREA NITROGEN 5 MG/DL (7-18); CALCIUM LEVEL 8.7 MG/DL (8.5-10.1); CARBON DIOXIDE LEVEL 27 MEQ/L (21-32); CHLORIDE LEVEL 98 MEQ/L (98-107); CHOLESTEROL LEVEL 159 MG/DL (<200); CHOLESTEROL RISK RATIO 4.076 (<5); CREATININE FOR GFR 0.76 MG/DL (0.55-1.30); FREE T4 1.23 NG/DL (0.76-1.46); GLOMERULAR FILTRATION RATE > 60.0 (>58); GLUCOSE, FASTING 318 MG/DL (70-100); HDL CHOLESTEROL 39 MG/DL (>40); LDL CHOLESTEROL 93 MG/DL (<100); NON-HDL-C 120 MG/DL; POTASSIUM SERUM 4.4 MEQ/L (3.5-5.1); SODIUM LEVEL 134 MEQ/L (136-145); TOTAL PROTEIN 6.9 GM/DL (6.4-8.2); TRIGLYCERIDES LEVEL 134 MG/DL (<150)
== END ==
LOC: M SFHCPLAZ 11:45
PROVIDERS: ATTEND Physician Assistant Medical
DX: F25.1 Schizoaffective disorder, depressive type (principal); J44.9 Chronic obstructive pulmonary disease, unspecified; E11.9 Type 2 diabetes mellitus without complications; Z13.220 Encounter for screening for lipoid disorders

== ENCOUNTER 2018-06-30 11:45 | Outpatient (RCR) | payer MEDICARE, MEDICAID ==
[~2018-06-30 11:45] MED LIST changes: -ERGO500014 PO; -METR-201 PO; +METR-265 PO; +VITA500045 PO
== END 2018-07-13 ==
LOC: M PT 11:45
PROVIDERS: ATTEND Physician Assistant Medical
DX: N39.3 Stress incontinence (female) (male) (principal)

== ENCOUNTER → 2019-01-27 | Outpatient (REF) | payer MEDICARE, MEDICAID ==
[2019-01-27 13:43] LABS: BASO % 0.4 % (0.0-1.0); EOS # 0.3 10^3/uL (0.0-0.5); EOS % 3.4 % (0.0-3.0); HEMATOCRIT 52.3 % (36.0-47.0); HEMOGLOBIN 17.6 g/dl (12.0-15.5); LYMPH % 20.1 % (24.0-44.0); MEAN CORPUSCULAR HEMOGLOBIN 28.8 pg (27.0-33.0); MEAN CORPUSCULAR HGB CONC 33.7 g/dl (32.0-36.5); MEAN CORPUSCULAR VOLUME 85.5 fl (80.0-96.0); MONO # 0.4 10^3/uL (0.0-0.8); MONO % 3.5 % (0.0-5.0); NEUTROPHILS # 7.3 10^3/uL (1.5-8.5); NEUTROPHILS % 72.2 % (36.0-66.0); PLATELET COUNT, AUTOMATED 264 10^3/uL (150-450); RED BLOOD COUNT 6.12 10^6/uL (4.00-5.40); WHITE BLOOD COUNT 10.1 10^3/uL (4.0-10.0)
[2019-01-27 13:58] LABS: ALBUMIN 4.3 GM/DL (3.2-5.2); ALT/SGPT 23 U/L (12-78); BILIRUBIN,TOTAL 1.1 MG/DL (0.2-1.0); BLOOD UREA NITROGEN 6 MG/DL (7-18); CALCIUM LEVEL 9.6 MG/DL (8.5-10.1); CARBON DIOXIDE LEVEL 29 MEQ/L (21-32); CHLORIDE LEVEL 98 MEQ/L (98-107); CHOLESTEROL LEVEL 171 MG/DL (<200); FREE T4 1.34 NG/DL (0.76-1.46); GLOMERULAR FILTRATION RATE > 60.0 (>58); GLUCOSE, FASTING 379 MG/DL (70-100); HDL CHOLESTEROL 45 MG/DL (>40); LDL CHOLESTEROL 91 MG/DL (<100); NON-HDL-C 126 MG/DL; POTASSIUM SERUM 4.2 MEQ/L (3.5-5.1); SODIUM LEVEL 135 MEQ/L (136-145); TOTAL 25(OH) VITAMIN D 16.2 NG/ML (30.0-100.0); TOTAL PROTEIN 7.9 GM/DL (6.4-8.2); TRIGLYCERIDES LEVEL 173 MG/DL (<150)
[2019-01-27 14:03] LABS: HEMOGLOBIN A1c 11.2 %
== END ==
LOC: M LAB REF 12:46
PROVIDERS: ATTEND Nurse Practitioner Family
DX: E78.5 Hyperlipidemia, unspecified (principal); E11.9 Type 2 diabetes mellitus without complications; R00.0 Tachycardia, unspecified; Z13.9 Encounter for screening, unspecified; Z79.899 Other long term (current) drug therapy

== ENCOUNTER → 2019-01-31 | Outpatient (CLI) | payer MEDICARE, MEDICAID ==
--- NOTE | 2019-01-31 10:59 | REP ---
Bilateral shoulder series: Six views. History: Bilateral shoulder joint pain. Findings: The glenohumeral and acromioclavicular joints are normally aligned bilaterally. Periarticular soft tissues are unremarkable. No fracture or subluxation is seen. Impression: Negative radiographs of the shoulders bilaterally. Electronically Signed by David Corado MD 01/31/2019 10:51 A
--- NOTE | 2019-01-31 11:00 | REP ---
Chest x-ray: Two views. History: Cough. Comparison study March 23, 2017. Findings: The lungs are symmetrically aerated and clear. Pleural angles are sharp. Cardiomediastinal silhouette and bony thorax are unremarkable. Impression: Negative chest x-ray. Electronically Signed by David Corado MD 01/31/2019 10:51 A
== END ==
LOC: M RAD 09:57
PROVIDERS: ATTEND Nurse Practitioner Family
DX: R05 Cough (principal)

== ENCOUNTER 2019-02-03 15:48 | Emergency (ER) | payer MEDICARE, MEDICAID ==
[~2019-02-03] VITALS: Ht 157.5 cm; Wt 90.9 kg
[2019-02-03] MEDS ORDERED: BREO1INH3 (15:57)
[2019-02-03] MEDS ORDERED: JANU25TA (15:58)
[2019-02-03] MEDS ORDERED: GLIM1TAB2 (15:58)
[2019-02-03] MEDS ORDERED: DESV50TA3 (15:58)
[2019-02-03] MEDS: ALBUTEROL SULFATE 2.5 MG/0.5 ML INH NEB SOLN NEB PRN ×3 (16:35→17:24)
--- NOTE | 2019-02-03 17:05 | REP ---
Chest x-ray: Two views. History: Increased shortness of breath over the last 3 days . Comparison study: January 31, 2019 . Findings: The lungs are well inflated and free of infiltrate. The pleural angles are sharp. The heart size is normal. Pulmonary vasculature is not increased. No significant bony abnormality is seen. Impression: Negative chest x-ray. Electronically Signed by David Corado MD 02/03/2019 04:56 P
[2019-02-03] MEDS ORDERED: PRED20TA PO ×2 (17:20→17:42)
[2019-02-03 17:39] VITALS: BP 119/60
== END 2019-02-03 17:43 | disposition home or self-care (01) ==
LOC: M ED 15:48
DX: J44.1 Chronic obstructive pulmonary disease with (acute) exacerbation (principal); E11.9 Type 2 diabetes mellitus without complications; J45.909 Unspecified asthma, uncomplicated; F17.200 Nicotine dependence, unspecified, uncomplicated; Z79.899 Other long term (current) drug therapy; Z88.0 Allergy status to penicillin; Z88.8 Allergy status to other drugs, medicaments and biological substances; Z91.018 Allergy to other foods

== ENCOUNTER → 2019-04-29 | Outpatient (REF) | payer MEDICARE, MEDICAID ==
[~2019-04-29] MED LIST changes: +BREO1INH3; +DESV50TA3; +GLIM1TAB4; +JANU25TA; +PRED20TA PO; -TRAZ-163 PO; +TRAZ-257 PO
[2019-04-29 12:41] LABS: BASO % 0.5 % (0.0-1.0); EOS # 0.1 10^3/uL (0.0-0.5); EOS % 1.6 % (0.0-3.0); HEMATOCRIT 51.3 % (36.0-47.0); HEMOGLOBIN 16.4 g/dl (12.0-15.5); LYMPH # 1.4 10^3/uL (1.5-5.0); LYMPH % 18.7 % (24.0-44.0); MEAN CORPUSCULAR HEMOGLOBIN 27.6 pg (27.0-33.0); MEAN CORPUSCULAR VOLUME 86.2 fl (80.0-96.0); MONO # 0.3 10^3/uL (0.0-0.8); MONO % 3.7 % (0.0-5.0); NEUTROPHILS # 5.8 10^3/uL (1.5-8.5); NEUTROPHILS % 75.1 % (36.0-66.0); PLATELET COUNT, AUTOMATED 238 10^3/uL (150-450); RED BLOOD COUNT 5.95 10^6/uL (4.00-5.40); WHITE BLOOD COUNT 7.7 10^3/uL (4.0-10.0)
[2019-04-29 12:45] LABS: ALBUMIN 4.2 GM/DL (3.2-5.2); ALT/SGPT 19 U/L (12-78); BILIRUBIN,TOTAL 0.7 MG/DL (0.2-1.0); BLOOD UREA NITROGEN 10 MG/DL (7-18); CALCIUM LEVEL 9.3 MG/DL (8.5-10.1); CARBON DIOXIDE LEVEL 31 MEQ/L (21-32); CHLORIDE LEVEL 102 MEQ/L (98-107); CHOLESTEROL LEVEL 156 MG/DL (<200); CHOLESTEROL RISK RATIO 3.466 (<5); CREATININE FOR GFR 0.74 MG/DL (0.55-1.30); GLOMERULAR FILTRATION RATE > 60.0 (>58); GLUCOSE, FASTING 232 MG/DL (70-100); HDL CHOLESTEROL 45 MG/DL (>40); LDL CHOLESTEROL 85 MG/DL (<100); NON-HDL-C 111 MG/DL; POTASSIUM SERUM 4.2 MEQ/L (3.5-5.1); SODIUM LEVEL 139 MEQ/L (136-145); TOTAL PROTEIN 7.5 GM/DL (6.4-8.2); TRIGLYCERIDES LEVEL 129 MG/DL (<150)
[2019-04-29 12:53] LABS: TOTAL 25(OH) VITAMIN D 56.9 NG/ML (30.0-100.0)
[2019-04-29 13:06] LABS: HEMOGLOBIN A1c 8.2 %
== END ==
LOC: M LAB REF 11:35
PROVIDERS: ATTEND Nurse Practitioner Family
DX: E55.9 Vitamin D deficiency, unspecified (principal); F17.200 Nicotine dependence, unspecified, uncomplicated; Z13.9 Encounter for screening, unspecified; M25.511 Pain in right shoulder; E11.9 Type 2 diabetes mellitus without complications; E78.5 Hyperlipidemia, unspecified; R00.0 Tachycardia, unspecified

== ENCOUNTER → 2019-08-03 | Outpatient (REF) | payer MEDICARE, MEDICAID ==
[2019-08-03 13:27] LABS: BASO % 0.2 % (0.0-1.0); EOS % 0.4 % (0.0-3.0); HEMATOCRIT 49.6 % (36.0-47.0); HEMOGLOBIN 16.4 g/dl (12.0-15.5); LYMPH # 1.7 10^3/uL (1.5-5.0); LYMPH % 18.1 % (24.0-44.0); MEAN CORPUSCULAR HEMOGLOBIN 28.6 pg (27.0-33.0); MEAN CORPUSCULAR HGB CONC 33.1 g/dl (32.0-36.5); MEAN CORPUSCULAR VOLUME 86.6 fl (80.0-96.0); MONO # 0.4 10^3/uL (0.0-0.8); MONO % 4.4 % (0.0-5.0); NEUTROPHILS # 7.2 10^3/uL (1.5-8.5); NEUTROPHILS % 76.3 % (36.0-66.0); PLATELET COUNT, AUTOMATED 239 10^3/uL (150-450); RED BLOOD COUNT 5.73 10^6/uL (4.00-5.40); WHITE BLOOD COUNT 9.4 10^3/uL (4.0-10.0)
[2019-08-03 13:42] LABS: ALBUMIN 3.7 GM/DL (3.2-5.2); ALT/SGPT 19 U/L (12-78); BILIRUBIN,TOTAL 0.6 MG/DL (0.2-1.0); BLOOD UREA NITROGEN 9 MG/DL (7-18); CARBON DIOXIDE LEVEL 27 MEQ/L (21-32); CHLORIDE LEVEL 103 MEQ/L (98-107); CHOLESTEROL LEVEL 186 MG/DL (<200); CHOLESTEROL RISK RATIO 4.894 (<5); CREATININE FOR GFR 0.86 MG/DL (0.55-1.30); FREE T4 1.15 NG/DL (0.76-1.46); GLOMERULAR FILTRATION RATE > 60.0 (>51); GLUCOSE, FASTING 197 MG/DL (70-100); HDL CHOLESTEROL 38 MG/DL (>40); LDL CHOLESTEROL 126 MG/DL (<100); NON-HDL-C 148 MG/DL; POTASSIUM SERUM 4.5 MEQ/L (3.5-5.1); SODIUM LEVEL 137 MEQ/L (136-145); TOTAL PROTEIN 6.8 GM/DL (6.4-8.2); TRIGLYCERIDES LEVEL 108 MG/DL (<150)
[2019-08-03 13:51] LABS: TOTAL 25(OH) VITAMIN D 32.6 NG/ML (30.0-100.0)
[2019-08-03 13:53] LABS: HEMOGLOBIN A1c 9.7 %
== END ==
LOC: M LAB REF 12:59
PROVIDERS: ATTEND Nurse Practitioner Family
DX: E55.9 Vitamin D deficiency, unspecified (principal); E11.9 Type 2 diabetes mellitus without complications; E78.5 Hyperlipidemia, unspecified; R00.0 Tachycardia, unspecified; Z13.9 Encounter for screening, unspecified; M25.511 Pain in right shoulder; F17.200 Nicotine dependence, unspecified, uncomplicated

== ENCOUNTER → 2020-01-04 | Outpatient (REF) | payer MEDICARE, MEDICAID ==
[2020-01-04 12:30] LABS: BASO % 0.4 % (0.0-1.0); EOS # 0.2 10^3/uL (0.0-0.5); EOS % 2.4 % (0.0-3.0); HEMATOCRIT 48.9 % (36.0-47.0); HEMOGLOBIN 16.2 g/dl (12.0-15.5); LYMPH # 1.4 10^3/uL (1.5-5.0); LYMPH % 19.7 % (24.0-44.0); MEAN CORPUSCULAR HEMOGLOBIN 27.1 pg (27.0-33.0); MEAN CORPUSCULAR HGB CONC 33.1 g/dl (32.0-36.5); MEAN CORPUSCULAR VOLUME 81.9 fl (80.0-96.0); MONO # 0.3 10^3/uL (0.0-0.8); MONO % 4.3 % (0.0-5.0); NEUTROPHILS # 5.3 10^3/uL (1.5-8.5); NEUTROPHILS % 72.8 % (36.0-66.0); PLATELET COUNT, AUTOMATED 260 10^3/uL (150-450); RED BLOOD COUNT 5.97 10^6/uL (4.00-5.40); WHITE BLOOD COUNT 7.2 10^3/uL (4.0-10.0)
[2020-01-04 12:58] LABS: ALBUMIN 3.6 GM/DL (3.2-5.2); ALT/SGPT 11 U/L (12-78); BILIRUBIN,TOTAL 0.8 MG/DL (0.2-1.0); BLOOD UREA NITROGEN 12 MG/DL (7-18); CALCIUM LEVEL 9.5 MG/DL (8.5-10.1); CARBON DIOXIDE LEVEL 28 MEQ/L (21-32); CHLORIDE LEVEL 98 MEQ/L (98-107); CHOLESTEROL LEVEL 213 MG/DL (<200); CHOLESTEROL RISK RATIO 6.085 (<5); CREATININE FOR GFR 0.96 MG/DL (0.55-1.30); GLOMERULAR FILTRATION RATE > 60.0 (>51); GLUCOSE, FASTING 386 MG/DL (70-100); HDL CHOLESTEROL 35 MG/DL (>40); LDL CHOLESTEROL 138 MG/DL (<100); NON-HDL-C 178 MG/DL; POTASSIUM SERUM 4.5 MEQ/L (3.5-5.1); SODIUM LEVEL 133 MEQ/L (136-145); TOTAL PROTEIN 6.9 GM/DL (6.4-8.2); TRIGLYCERIDES LEVEL 199 MG/DL (<150)
[2020-01-04 13:06] LABS: HEMOGLOBIN A1c 11.2 %
== END ==
LOC: M LAB REF 11:34
PROVIDERS: ATTEND Nurse Practitioner Family
DX: F41.8 Other specified anxiety disorders (principal); E11.9 Type 2 diabetes mellitus without complications; R00.0 Tachycardia, unspecified; E78.5 Hyperlipidemia, unspecified; Z13.9 Encounter for screening, unspecified; F17.200 Nicotine dependence, unspecified, uncomplicated

== ENCOUNTER 2020-11-30 15:17 | Emergency (ER) | payer MEDICARE, MEDICAID ==
[~2020-11-30] VITALS: Ht 154.9 cm; Wt 81.8 kg
[~2020-11-30 15:17] MED LIST changes: -KLOR10TA76 PO; +POTA-136 PO
[2020-11-30 15:19] VITALS: BP 134/76
== END 2020-11-30 15:32 | disposition left against medical advice (07) ==
LOC: M ED 15:17
DX: Z53.21 Procedure and treatment not carried out due to patient leaving prior to being seen by health care provider (principal)

== ENCOUNTER 2021-08-27 19:49 | Inpatient (IN) | payer MEDICARE, MEDICAID ==
[~2021-08-27] VITALS: Ht 157.5 cm; Wt 78.8 kg
[2021-08-27] MEDS ORDERED: NS 1,000 ML IV ONE ×2 (20:05→23:00)
[2021-08-27] MEDS ORDERED: MORPHINE 2 MG/ML 1ML VIAL IV PRN ×2 (20:20→23:45)
[2021-08-27] MEDS ORDERED: VANCOMYCIN HCL 1,000 MG, VIAL MATE ADAPTER 1 EACH in NS 250 ML IV ONE (20:20)
[2021-08-27 20:22] LABS: VENOUS BASE EXCESS -8.3 (-2.0-2.0); VENOUS HCO3 17.3 MEQ/L (23.0-27.0); VENOUS O2 SATURATION 83.3 % (60.0-80.0); VENOUS PARTIAL PRESSURE CO2 36.2 mmHg (38.0-50.0); VENOUS PARTIAL PRESSURE O2 47.8 mmHg (30.0-50.0); VENOUS PH 7.296 UNITS (7.330-7.430); VENOUS STANDARD HCO3 17.6 MEQ/L; VENOUS TOTAL CO2 18.4 MEQ/L (24.0-28.0)
[2021-08-27 20:26] LABS: BASO # 0.1 10^3/uL (0.0-0.2); BASO % 0.4 % (0.0-1.0); EOS # 0.1 10^3/uL (0.0-0.5); EOS % 0.3 % (0.0-3.0); HEMATOCRIT 43.1 % (36.0-47.0); HEMOGLOBIN 15.5 g/dl (12.0-15.5); LYMPH # 0.7 10^3/uL (1.5-5.0); LYMPH % 4.2 % (24.0-44.0); MEAN CORPUSCULAR HEMOGLOBIN 29.9 pg (27.0-33.0); MEAN CORPUSCULAR VOLUME 83.2 fl (80.0-96.0); MONO # 0.9 10^3/uL (0.0-0.8); MONO % 5.4 % (2.0-8.0); NEUTROPHILS # 15.3 10^3/uL (1.5-8.5); NEUTROPHILS % 88.7 % (36.0-66.0); PLATELET COUNT, AUTOMATED 332 10^3/uL (150-450); RED BLOOD COUNT 5.18 10^6/uL (4.00-5.40); WHITE BLOOD COUNT 17.3 10^3/uL (4.0-10.0)
[2021-08-27 20:53] LABS: HEMOGLOBIN A1c 11.9 %
[2021-08-27 20:55] LABS: CK-MB VALUE MASS < 1.0 NG/ML (<3.6); CPK CREATINE PHOSPHOKINASE 23 U/L (26-192); MB/CK RELATIVE INDEX 4.35 (< OR =4)
[2021-08-27] MEDS: ATORVASTATIN 10 MG TAB PO SCH (21:00)
[2021-08-27 21:01] LABS: ALBUMIN 2.6 GM/DL (3.2-5.2); ALT/SGPT < 6 U/L (12-78); BILIRUBIN,DIRECT 0.4 MG/DL (0.0-0.2); BILIRUBIN,TOTAL 0.7 MG/DL (0.2-1.0); BLOOD UREA NITROGEN 31 MG/DL (7-18); CALCIUM LEVEL 8.8 MG/DL (8.5-10.1); CARBON DIOXIDE LEVEL 18 MEQ/L (21-32); CHLORIDE LEVEL 92 MEQ/L (98-107); CREATININE FOR GFR 1.49 MG/DL (0.55-1.30); ETHYL ALCOHOL (ETHANOL) < 0.003 % (0.000-0.010); GLOMERULAR FILTRATION RATE 39.1 (>51); GLUCOSE, FASTING 675 MG/DL (70-100); LIPASE 46 U/L (73-393); SODIUM LEVEL 126 MEQ/L (136-145); TOTAL PROTEIN 6.6 GM/DL (6.4-8.2)
[2021-08-27 21:10] LABS: OSMOLALITY SERUM 301 MOSM/KG (275-295)
[2021-08-27 21:15] LABS: RSV AMPLIFICATION NEGATIVE (NEGATIVE)
[2021-08-27] MEDS ORDERED: NS 1,290 ML in IV 1 EA IV ONE (21:20)
[2021-08-27] MEDS ORDERED: LevoFLOXacin IV 750 MG in IV 1 EA IV ONE (21:20)
[2021-08-27] MEDS ORDERED: HumuLIN R (REGULAR) INSULIN (NovoLIN R) **100U/ML** PER UNIT IV ONE (21:25)
[2021-08-27] MEDS ORDERED: INSULIN REGULAR IN 0.9 % NACL 100 UNIT in IV 1 EA IV SCH ×4 (22:10→23:00)
[2021-08-27] MEDS ORDERED: INSULIN IV RATE CHANGE DOCUMENTATION ML/HR XX SCH ×2 (22:10→23:00)
[2021-08-27] MEDS ORDERED: LIDOCAINE W/EPINEPHRINE 1% 20ML VIAL As Ordered ONE ×2 (22:41→23:00)
[2021-08-27] MEDS ORDERED: ALBUTEROL SULFATE 2.5 MG/0.5 ML INH NEB SOLN NEB PRN (23:00)
[2021-08-27] MEDS ORDERED: INVE6TAB3 PO (23:02)
[2021-08-27] MEDS ORDERED: OXYB5TAB10 PO (23:02)
[2021-08-27] MEDS ORDERED: MIDAZOLAM INJ 2MG/2ML VIAL (J2250 PER 1MG) As Ordered ONE (23:02)
[2021-08-27] MEDS ORDERED: DESV100T PO (23:02)
[2021-08-27] MEDS ORDERED: propofoL 500 MG/50 ML VIAL As Ordered ONE (23:02)
[2021-08-27] MEDS ORDERED: IBUP-1764 PO (23:02)
[2021-08-27] MEDS ORDERED: OMEP-173 PO (23:02)
[2021-08-27] MEDS ORDERED: ADV250INH INH (23:02)
[2021-08-27] MEDS ORDERED: ATOR1TAB19 PO (23:02)
[2021-08-27] MEDS ORDERED: INSULANT SC (23:02)
[2021-08-27] MEDS ORDERED: fentaNYL 100 MCG/2 ML INJECTION As Ordered ONE (23:03)
[2021-08-27] MEDS ORDERED: LIDOCAINE 2% 100MG/5ML SDV (FOR ANES.) As Ordered ONE (23:04)
[2021-08-27] MEDS ORDERED: HOME MED LIST COMPLETE! XX SCH (23:05)
[2021-08-27] MEDS ORDERED: PHENYLephrine 500MCG 5ML (100MCG/ML) SYRINGE As Ordered ONE (23:20)
[2021-08-27] MEDS ORDERED: ONDANSETRON 4MG/2ML VIAL As Ordered ONE (23:21)
[2021-08-27] MEDS ORDERED: ACETAMINOPHEN 1000MG 100ML IV BTL (OFIRMEV) (J0131 PER 10MG) As Ordered ONE (23:21)
[2021-08-27] MEDS ORDERED: KETOROLAC 60MG 2ML VIAL As Ordered ONE (23:21)
[2021-08-27] MEDS ORDERED: LR 1,000 ML IV SCH (23:45)
[2021-08-27] MEDS ORDERED: fentaNYL 100 MCG/2 ML INJECTION IV PRN (23:45)
[2021-08-27] MEDS ORDERED: ONDANSETRON 4MG/2ML VIAL IV PRN (23:45)
[2021-08-27] MEDS ORDERED: oxyCODONE 5MG TAB PO PRN (23:45)
[2021-08-27] MEDS ORDERED: INSULIN LISPRO (NovoLOG) PER UNIT SC PRN (23:45)
[2021-08-28] VITALS (15 sets, daily range): BP systolic 80–107; BP diastolic 43–59
[2021-08-28] MEDS ORDERED: KETOROLAC 30 MG/ML 1ML VIAL IV PRN (02:30)
[2021-08-28] MEDS ORDERED: POTASSIUM CHLORIDE 10% LIQ 20 MEQ/15 ML UDC PO ONE ×2 (02:30→02:33)
[2021-08-28] MEDS ORDERED: SODIUM CHLORIDE 0.9% 1000ML IV ONE (02:33)
[2021-08-28] MEDS ORDERED: KETOROLAC 30 MG/ML 1ML VIAL As Ordered ONE (03:01)
[2021-08-28] MEDS ORDERED: POTASSIUM CHLORIDE 10% LIQ 20 MEQ/15 ML UDC As Ordered ONE (03:07)
[2021-08-28] MEDS ORDERED: LEVEMIR (INSULIN DETEMIR) 1 UNITS/0.01ML As Ordered ONE (03:10)
[2021-08-28 03:23] LABS: CALCIUM LEVEL 8.2 MG/DL (8.5-10.1); CREATININE FOR GFR 1.28 MG/DL (0.55-1.30); GLOMERULAR FILTRATION RATE 46.6 (>51); PHOSPHORUS LEVEL 2.6 MG/DL (2.5-4.9); POTASSIUM SERUM 3.2 MEQ/L (3.5-5.1)
[2021-08-28 03:24] LABS: CREATININE FOR GFR 1.16 MG/DL (0.55-1.30); GLOMERULAR FILTRATION RATE 52.2 (>51); PHOSPHORUS LEVEL 2.2 MG/DL (2.5-4.9); POTASSIUM SERUM 2.9 MEQ/L (3.5-5.1)
[2021-08-28] MEDS ORDERED: LEVEMIR (INSULIN DETEMIR) 1 UNITS/0.01ML SC SCH (03:30)
[2021-08-28] MEDS ORDERED: DEXTROSE 50% 50 ML SYRINGE IV PRN (04:40)
[2021-08-28] MEDS ORDERED: GLUCAGON INJ 1MG VIAL SC PRN (04:40)
[2021-08-28] MEDS ORDERED: GLUCOSE 4GM CHEW TABLET PO PRN (04:40)
[2021-08-28] MEDS ORDERED: VANCOMYCIN HCL 1,000 MG, VIAL MATE ADAPTER 1 EACH in NS 250 ML IV ONE (05:00)
[2021-08-28] MEDS ORDERED: KCL 40MEQ in NS 1000ML 1,000 ML IV SCH (05:00)
[2021-08-28] MEDS: HEPARIN SOD (PORCINE) 5000UNITS/ML 1ML VIAL/SYRINGE SC SCH ×3 (06:20→20:41)
[2021-08-28 07:27] LABS: CALCIUM LEVEL 7.7 MG/DL (8.5-10.1); CREATININE FOR GFR 1.08 MG/DL (0.55-1.30); GLOMERULAR FILTRATION RATE 56.7 (>51); PHOSPHORUS LEVEL 2.6 MG/DL (2.5-4.9); POTASSIUM SERUM 3.8 MEQ/L (3.5-5.1)
[2021-08-28] MEDS: oxyBUTYnin 5 MG TAB PO SCH (08:07)
[2021-08-28] MEDS: OMEPRAZOLE 20MG CAP PO SCH (08:08)
[2021-08-28] MEDS: DESVENLAFAXINE ER 50 MG TABLET (PRISTIQ) PO SCH (08:08)
[2021-08-28] MEDS: PALIPERIDONE 6 MG ER TAB (INVEGA) PO SCH (08:08)
[2021-08-28] MEDS: KETOROLAC 30 MG/ML 1ML VIAL IV PRN ×2 (08:08→17:11)
[2021-08-28] MEDS: INSULIN LISPRO (NovoLOG) PER UNIT SC SCH ×4 (08:09→20:41)
[2021-08-28] MEDS ORDERED: LR 1,000 ML IV ONE (10:30)
[2021-08-28 11:49] LABS: BLOOD UREA NITROGEN 29 MG/DL (7-18); CALCIUM LEVEL 8.5 MG/DL (8.5-10.1); CARBON DIOXIDE LEVEL 16 MEQ/L (21-32); CHLORIDE LEVEL 111 MEQ/L (98-107); CREATININE FOR GFR 0.96 MG/DL (0.55-1.30); GLOMERULAR FILTRATION RATE > 60.0 (>51); GLUCOSE, FASTING 211 MG/DL (70-100); PHOSPHORUS LEVEL 2.3 MG/DL (2.5-4.9); POTASSIUM SERUM 4.3 MEQ/L (3.5-5.1); SODIUM LEVEL 136 MEQ/L (136-145)
[2021-08-28] MEDS ORDERED: POTASSIUM CHLORIDE INJ 40 MEQ in LR 1,000 ML IV SCH (12:00)
[2021-08-28] MEDS ORDERED: ONDANSETRON 4MG/2ML VIAL IV PRN (12:10)
[2021-08-28] MEDS ORDERED: MORPHINE 2 MG/ML 1ML VIAL IV ONE (15:25)
[2021-08-28] MEDS ORDERED: MORPHINE 2 MG/ML 1ML VIAL As Ordered ONE (15:25)
[2021-08-28] MEDS ORDERED: LEVEMIR (INSULIN DETEMIR) 1 UNITS/0.01ML SC ONE (16:35)
[2021-08-28 17:19] LABS: BLOOD UREA NITROGEN 24 MG/DL (7-18); CALCIUM LEVEL 7.8 MG/DL (8.5-10.1); CARBON DIOXIDE LEVEL 19 MEQ/L (21-32); CHLORIDE LEVEL 110 MEQ/L (98-107); CREATININE FOR GFR 0.84 MG/DL (0.55-1.30); GLOMERULAR FILTRATION RATE > 60.0 (>51); GLUCOSE, FASTING 170 MG/DL (70-100); PHOSPHORUS LEVEL 1.4 MG/DL (2.5-4.9); POTASSIUM SERUM 4.3 MEQ/L (3.5-5.1); SODIUM LEVEL 135 MEQ/L (136-145)
[2021-08-28] MEDS: LR 1,000 ML IV SCH ×2 (17:43→23:58)
[2021-08-28] MEDS: ATORVASTATIN 10 MG TAB PO SCH (20:39)
[2021-08-28] MEDS: VANCOMYCIN HCL 1,000 MG, VIAL MATE ADAPTER 1 EACH in NS 250 ML IV SCH (20:41)
[2021-08-28] MEDS: SENNA 8.6 MG TAB (SENOKOT) PO SCH (20:45)
[2021-08-28] MEDS ORDERED: LevoFLOXacin IV 750 MG in IV 1 EA IV SCH (21:00)
[2021-08-29] VITALS (7 sets, daily range): BP systolic 90–123; BP diastolic 54–61
[2021-08-29] MEDS: KETOROLAC 30 MG/ML 1ML VIAL IV PRN ×3 (00:02→12:33)
[2021-08-29] MEDS: HEPARIN SOD (PORCINE) 5000UNITS/ML 1ML VIAL/SYRINGE SC SCH ×3 (05:14→22:00)
[2021-08-29] MEDS: LR 1,000 ML IV SCH (06:13)
[2021-08-29] MEDS: INSULIN LISPRO (NovoLOG) PER UNIT SC SCH ×4 (08:18→20:11)
[2021-08-29] MEDS: DESVENLAFAXINE ER 50 MG TABLET (PRISTIQ) PO SCH (08:19)
[2021-08-29] MEDS: PALIPERIDONE 6 MG ER TAB (INVEGA) PO SCH (08:19)
[2021-08-29] MEDS: oxyBUTYnin 5 MG TAB PO SCH (08:19)
[2021-08-29] MEDS: VANCOMYCIN HCL 1,000 MG, VIAL MATE ADAPTER 1 EACH in NS 250 ML IV SCH ×2 (08:19→20:25)
[2021-08-29] MEDS: OMEPRAZOLE 20MG CAP PO SCH (08:19)
[2021-08-29 09:29] LABS: HEMATOCRIT 32.8 % (36.0-47.0); MEAN CORPUSCULAR HEMOGLOBIN 29.9 pg (27.0-33.0); MEAN CORPUSCULAR HGB CONC 35.1 g/dl (32.0-36.5); MEAN CORPUSCULAR VOLUME 85.2 fl (80.0-96.0); PLATELET COUNT, AUTOMATED 257 10^3/uL (150-450); RED BLOOD COUNT 3.85 10^6/uL (4.00-5.40); WHITE BLOOD COUNT 9.3 10^3/uL (4.0-10.0)
[2021-08-29 09:36] LABS: HEMOGLOBIN 11.5 g/dl (12.0-15.5)
[2021-08-29 09:40] LABS: BLOOD UREA NITROGEN 21 MG/DL (7-18); CALCIUM LEVEL 8.6 MG/DL (8.5-10.1); CARBON DIOXIDE LEVEL 18 MEQ/L (21-32); CHLORIDE LEVEL 111 MEQ/L (98-107); CREATININE FOR GFR 0.74 MG/DL (0.55-1.30); GLOMERULAR FILTRATION RATE > 60.0 (>51); GLUCOSE, FASTING 225 MG/DL (70-100); MAGNESIUM LEVEL 1.4 MG/DL (1.8-2.4); PHOSPHORUS LEVEL 1.9 MG/DL (2.5-4.9); POTASSIUM SERUM 4.2 MEQ/L (3.5-5.1); SODIUM LEVEL 137 MEQ/L (136-145)
[2021-08-29] MEDS ORDERED: SODIUM PHOSPHATE INJ 30 MMOL in D5W 500 ML IV ONE (10:00)
[2021-08-29] MEDS ORDERED: MAGNESIUM OXIDE 400MG TAB (MAG-OX) PO ONE (14:25)
[2021-08-29] MEDS: MORPHINE 2 MG/ML 1ML VIAL IV PRN (17:36)
[2021-08-29] MEDS: SENNA 8.6 MG TAB (SENOKOT) PO SCH ×2 (20:25→20:33)
[2021-08-29] MEDS ORDERED: diphenhydrAMINE 25MG CAP PO PRN (20:35)
[2021-08-29] MEDS ORDERED: NS 1,000 ML IV ONE (20:35)
[2021-08-29 21:06] LABS: HEMATOCRIT 32.1 % (36.0-47.0); HEMOGLOBIN 11.4 g/dl (12.0-15.5)
[2021-08-29] MEDS: MEROPENEM INJ 1 GM in IV 1 EA IV SCH (22:03)
[2021-08-29] MEDS: ATORVASTATIN 10 MG TAB PO SCH (22:03)
[2021-08-30] VITALS (7 sets, daily range): BP systolic 121–146; BP diastolic 63–70
[2021-08-30 05:24] LABS: BASO % 0.3 % (0.0-1.0); EOS % 0.1 % (0.0-3.0); HEMATOCRIT 31.6 % (36.0-47.0); HEMOGLOBIN 11.2 g/dl (12.0-15.5); LYMPH # 1.2 10^3/uL (1.5-5.0); MEAN CORPUSCULAR HEMOGLOBIN 30.2 pg (27.0-33.0); MEAN CORPUSCULAR HGB CONC 35.4 g/dl (32.0-36.5); MEAN CORPUSCULAR VOLUME 85.2 fl (80.0-96.0); MONO # 0.3 10^3/uL (0.0-0.8); NEUTROPHILS # 5.2 10^3/uL (1.5-8.5); NEUTROPHILS % 76.6 % (36.0-66.0); PLATELET COUNT, AUTOMATED 240 10^3/uL (150-450); RED BLOOD COUNT 3.71 10^6/uL (4.00-5.40); WHITE BLOOD COUNT 6.8 10^3/uL (4.0-10.0)
[2021-08-30] MEDS: MEROPENEM INJ 1 GM in IV 1 EA IV SCH ×3 (05:24→20:19)
[2021-08-30] MEDS: HEPARIN SOD (PORCINE) 5000UNITS/ML 1ML VIAL/SYRINGE SC SCH ×4 (05:24→20:19)
[2021-08-30 05:44] LABS: BLOOD UREA NITROGEN 13 MG/DL (7-18); CALCIUM LEVEL 7.8 MG/DL (8.5-10.1); CARBON DIOXIDE LEVEL 20 MEQ/L (21-32); CHLORIDE LEVEL 108 MEQ/L (98-107); CREATININE FOR GFR 0.54 MG/DL (0.55-1.30); GLOMERULAR FILTRATION RATE > 60.0 (>51); GLUCOSE, FASTING 218 MG/DL (70-100); POTASSIUM SERUM 3.9 MEQ/L (3.5-5.1); SODIUM LEVEL 136 MEQ/L (136-145)
[2021-08-30] MEDS: INSULIN LISPRO (NovoLOG) PER UNIT SC SCH ×4 (08:04→20:18)
[2021-08-30] MEDS: VANCOMYCIN HCL 1,000 MG, VIAL MATE ADAPTER 1 EACH in NS 250 ML IV SCH (08:04)
[2021-08-30] MEDS: DESVENLAFAXINE ER 50 MG TABLET (PRISTIQ) PO SCH (08:30)
[2021-08-30] MEDS: PALIPERIDONE 6 MG ER TAB (INVEGA) PO SCH (08:31)
[2021-08-30] MEDS: OMEPRAZOLE 20MG CAP PO SCH (08:31)
[2021-08-30] MEDS: oxyBUTYnin 5 MG TAB PO SCH (08:31)
[2021-08-30] MEDS: MORPHINE 2 MG/ML 1ML VIAL IV PRN (08:32)
[2021-08-30 09:12] LABS: VANCOMYCIN RANDOM 17.2 UG/ML
[2021-08-30] MEDS: TRIAMCINOLONE ACET 0.1% CREAM 80 GM EXT SCH ×2 (15:27→20:19)
[2021-08-30] MEDS: FLUCONAZOLE 100 MG TAB PO SCH (15:38)
[2021-08-30] MEDS ORDERED: SODIUM PHOSPHATE INJ 30 MMOL in D5W 500 ML IV ONE (16:00)
[2021-08-30] MEDS ORDERED: VANCOMYCIN HCL 1,000 MG, VIAL MATE ADAPTER 1 EACH in NS 250 ML IV SCH (16:00)
[2021-08-30] MEDS: ATORVASTATIN 10 MG TAB PO SCH (20:18)
[2021-08-30] MEDS: SENNA 8.6 MG TAB (SENOKOT) PO SCH (20:19)
[2021-08-31] VITALS (8 sets, daily range): BP systolic 128–161; BP diastolic 61–78
[2021-08-31] MEDS: MEROPENEM INJ 1 GM in IV 1 EA IV SCH ×3 (04:25→20:25)
[2021-08-31] MEDS: HEPARIN SOD (PORCINE) 5000UNITS/ML 1ML VIAL/SYRINGE SC SCH ×3 (05:07→20:27)
[2021-08-31 05:36] LABS: ABG BASE EXCESS 0.6 (-2.0-2.0); ABG HCO3 23.2 MEQ/L (22.0-26.0); ABG O2 SATURATION 95.3 % (95.0-99.0); ABG PARTIAL PRESSURE CO2 30.6 mmHg (35.0-45.0); ABG PARTIAL PRESSURE O2 71.6 mmHg (75.0-100.0); ABG TOTAL CO2 24.1 MEQ/L (22.0-29.0); ABG pH (ARTERIAL) 7.497 UNITS (7.350-7.450)
[2021-08-31] MEDS: MORPHINE 2 MG/ML 1ML VIAL IV PRN ×2 (05:52→17:16)
[2021-08-31] MEDS: ADVAIR HFA 115/21MCG INHALER INH SCH ×2 (08:00→19:32)
[2021-08-31] MEDS: INSULIN LISPRO (NovoLOG) PER UNIT SC SCH ×4 (08:39→20:26)
[2021-08-31] MEDS: FLUCONAZOLE 100 MG TAB PO SCH (08:39)
[2021-08-31] MEDS: DESVENLAFAXINE ER 50 MG TABLET (PRISTIQ) PO SCH (08:39)
[2021-08-31] MEDS: PALIPERIDONE 6 MG ER TAB (INVEGA) PO SCH (08:39)
[2021-08-31] MEDS: oxyBUTYnin 5 MG TAB PO SCH (08:40)
[2021-08-31] MEDS: TRIAMCINOLONE ACET 0.1% CREAM 80 GM EXT SCH ×2 (08:40→20:26)
[2021-08-31] MEDS: OMEPRAZOLE 20MG CAP PO SCH (08:40)
[2021-08-31 10:17] LABS: BASO % 0.4 % (0.0-1.0); EOS % 0.2 % (0.0-3.0); HEMATOCRIT 32.2 % (36.0-47.0); HEMOGLOBIN 11.4 g/dl (12.0-15.5); LYMPH # 1.3 10^3/uL (1.5-5.0); LYMPH % 23.8 % (24.0-44.0); MEAN CORPUSCULAR HEMOGLOBIN 29.8 pg (27.0-33.0); MEAN CORPUSCULAR HGB CONC 35.4 g/dl (32.0-36.5); MEAN CORPUSCULAR VOLUME 84.3 fl (80.0-96.0); MONO # 0.3 10^3/uL (0.0-0.8); MONO % 6.1 % (2.0-8.0); NEUTROPHILS # 3.7 10^3/uL (1.5-8.5); PLATELET COUNT, AUTOMATED 247 10^3/uL (150-450); RED BLOOD COUNT 3.82 10^6/uL (4.00-5.40); WHITE BLOOD COUNT 5.4 10^3/uL (4.0-10.0)
[2021-08-31] MEDS ORDERED: ALBUTEROL 90 MCG/ACT 8GM HFA INHALER INH PRN (10:20)
[2021-08-31 10:53] LABS: BLOOD UREA NITROGEN 7 MG/DL (7-18); CALCIUM LEVEL 7.6 MG/DL (8.5-10.1); CARBON DIOXIDE LEVEL 26 MEQ/L (21-32); CHLORIDE LEVEL 108 MEQ/L (98-107); CREATININE FOR GFR 0.55 MG/DL (0.55-1.30); GLOMERULAR FILTRATION RATE > 60.0 (>51); GLUCOSE, FASTING 216 MG/DL (70-100); MAGNESIUM LEVEL 1.3 MG/DL (1.8-2.4); POTASSIUM SERUM 3.1 MEQ/L (3.5-5.1); SODIUM LEVEL 141 MEQ/L (136-145)
[2021-08-31 11:34] LABS: PHOSPHORUS LEVEL 2.4 MG/DL (2.5-4.9)
[2021-08-31] MEDS ORDERED: KCL 10MEQ/100ML SWI (KRUN) 10 MEQ in IV 1 EA IV ONE ×3 (12:00→14:00)
[2021-08-31] MEDS ORDERED: MAG SULF 1GM/100ML (MAG RUN) 1 GM in IV 1 EA IV ONE ×2 (12:00→13:00)
[2021-08-31] MEDS ORDERED: POTASSIUM CHLORIDE 10% LIQ 20 MEQ/15 ML UDC PO ONE (13:00)
[2021-08-31] MEDS ORDERED: BISACODYL 10 MG SUPP PR ONE (13:05)
[2021-08-31] MEDS ORDERED: K-PHOS ORIGINAL (POT.ACID PHOSPHATE) 500MG TAB PO ONE (15:40)
[2021-08-31 17:17] LABS: MAGNESIUM LEVEL 1.6 MG/DL (1.8-2.4); POTASSIUM SERUM 3.2 MEQ/L (3.5-5.1)
[2021-08-31] MEDS ORDERED: POTASSIUM CHLORIDE 10MEQ SR TABLET PO ONE (20:00)
[2021-08-31] MEDS: ATORVASTATIN 10 MG TAB PO SCH (20:26)
[2021-08-31] MEDS: SENNA 8.6 MG TAB (SENOKOT) PO SCH (20:34)
[2021-09-01 04:37] VITALS: BP 156/79
[2021-09-01] MEDS: MEROPENEM INJ 1 GM in IV 1 EA IV SCH ×3 (04:50→22:19)
[2021-09-01] MEDS: MORPHINE 2 MG/ML 1ML VIAL IV PRN (04:50)
[2021-09-01] MEDS: HEPARIN SOD (PORCINE) 5000UNITS/ML 1ML VIAL/SYRINGE SC SCH ×3 (05:08→22:00)
[2021-09-01] MEDS: ADVAIR HFA 115/21MCG INHALER INH SCH ×2 (07:18→19:32)
[2021-09-01 07:38] LABS: HEMATOCRIT 34.9 % (36.0-47.0); HEMOGLOBIN 11.9 g/dl (12.0-15.5); MEAN CORPUSCULAR HEMOGLOBIN 29.5 pg (27.0-33.0); MEAN CORPUSCULAR VOLUME 86.4 fl (80.0-96.0); RED BLOOD COUNT 4.04 10^6/uL (4.00-5.40); WHITE BLOOD COUNT 6.5 10^3/uL (4.0-10.0)
[2021-09-01 07:39] LABS: BASO % 0.5 % (0.0-1.0); EOS % 0.2 % (0.0-3.0); LYMPH # 1.3 10^3/uL (1.5-5.0); MEAN CORPUSCULAR HGB CONC 34.1 g/dl (32.0-36.5); MONO # 0.4 10^3/uL (0.0-0.8); MONO % 6.3 % (2.0-8.0); NEUTROPHILS # 4.6 10^3/uL (1.5-8.5); NEUTROPHILS % 70.8 % (36.0-66.0); PLATELET COUNT, AUTOMATED 236 10^3/uL (150-450)
[2021-09-01 08:00] VITALS: BP 154/74
[2021-09-01 08:14] LABS: BLOOD UREA NITROGEN 6 MG/DL (7-18); CALCIUM LEVEL 8.6 MG/DL (8.5-10.1); CARBON DIOXIDE LEVEL 27 MEQ/L (21-32); CHLORIDE LEVEL 108 MEQ/L (98-107); CREATININE FOR GFR 0.58 MG/DL (0.55-1.30); GLOMERULAR FILTRATION RATE > 60.0 (>51); GLUCOSE, FASTING 293 MG/DL (70-100); MAGNESIUM LEVEL 1.7 MG/DL (1.8-2.4); POTASSIUM SERUM 3.4 MEQ/L (3.5-5.1); SODIUM LEVEL 140 MEQ/L (136-145)
[2021-09-01] MEDS: PALIPERIDONE 6 MG ER TAB (INVEGA) PO SCH (09:34)
[2021-09-01] MEDS: INSULIN LISPRO (NovoLOG) PER UNIT SC SCH ×4 (09:34→21:00)
[2021-09-01] MEDS: OMEPRAZOLE 20MG CAP PO SCH (09:35)
[2021-09-01] MEDS: FLUCONAZOLE 100 MG TAB PO SCH (09:35)
[2021-09-01] MEDS: oxyBUTYnin 5 MG TAB PO SCH (09:35)
[2021-09-01] MEDS: DESVENLAFAXINE ER 50 MG TABLET (PRISTIQ) PO SCH (09:35)
[2021-09-01] MEDS: TRIAMCINOLONE ACET 0.1% CREAM 80 GM EXT SCH ×2 (09:36→22:18)
[2021-09-01] MEDS ORDERED: POTASSIUM CHLORIDE 10MEQ SR TABLET PO ONE (11:00)
[2021-09-01] MEDS ORDERED: MAGNESIUM OXIDE 400MG TAB (MAG-OX) PO ONE (11:15)
[2021-09-01 12:00] VITALS: BP 138/75
[2021-09-01 17:26] VITALS: BP 132/82
[2021-09-01 22:00] VITALS: BP 133/81
[2021-09-01] MEDS: SENNA 8.6 MG TAB (SENOKOT) PO SCH (22:18)
[2021-09-01] MEDS: LEVEMIR (INSULIN DETEMIR) 1 UNITS/0.01ML SC SCH (22:19)
[2021-09-01] MEDS: ATORVASTATIN 10 MG TAB PO SCH (22:19)
[2021-09-02] MEDS: HEPARIN SOD (PORCINE) 5000UNITS/ML 1ML VIAL/SYRINGE SC SCH ×3 (06:00→22:00)
[2021-09-02] MEDS: MEROPENEM INJ 1 GM in IV 1 EA IV SCH ×4 (06:01→23:01)
[2021-09-02 06:03] VITALS: BP 150/81
[2021-09-02 06:31] LABS: BASO % 0.3 % (0.0-1.0); EOS % 0.3 % (0.0-3.0); HEMATOCRIT 34.5 % (36.0-47.0); HEMOGLOBIN 11.9 g/dl (12.0-15.5); LYMPH # 1.5 10^3/uL (1.5-5.0); MEAN CORPUSCULAR HEMOGLOBIN 29.4 pg (27.0-33.0); MEAN CORPUSCULAR HGB CONC 34.5 g/dl (32.0-36.5); MEAN CORPUSCULAR VOLUME 85.2 fl (80.0-96.0); MONO # 0.5 10^3/uL (0.0-0.8); MONO % 7.6 % (2.0-8.0); NEUTROPHILS # 4.6 10^3/uL (1.5-8.5); NEUTROPHILS % 67.9 % (36.0-66.0); PLATELET COUNT, AUTOMATED 254 10^3/uL (150-450); RED BLOOD COUNT 4.05 10^6/uL (4.00-5.40); WHITE BLOOD COUNT 6.8 10^3/uL (4.0-10.0)
[2021-09-02 06:53] LABS: BLOOD UREA NITROGEN 5 MG/DL (7-18); CALCIUM LEVEL 8.4 MG/DL (8.5-10.1); CARBON DIOXIDE LEVEL 28 MEQ/L (21-32); CHLORIDE LEVEL 105 MEQ/L (98-107); CREATININE FOR GFR 0.42 MG/DL (0.55-1.30); GLOMERULAR FILTRATION RATE > 60.0 (>51); GLUCOSE, FASTING 222 MG/DL (70-100); MAGNESIUM LEVEL 1.7 MG/DL (1.8-2.4); POTASSIUM SERUM 3.6 MEQ/L (3.5-5.1); SODIUM LEVEL 141 MEQ/L (136-145)
[2021-09-02] MEDS: ADVAIR HFA 115/21MCG INHALER INH SCH ×2 (07:41→19:07)
[2021-09-02] MEDS: DESVENLAFAXINE ER 50 MG TABLET (PRISTIQ) PO SCH (08:15)
[2021-09-02] MEDS: oxyBUTYnin 5 MG TAB PO SCH (08:16)
[2021-09-02] MEDS: FLUCONAZOLE 100 MG TAB PO SCH (08:16)
[2021-09-02] MEDS: PALIPERIDONE 6 MG ER TAB (INVEGA) PO SCH (08:16)
[2021-09-02] MEDS: INSULIN LISPRO (NovoLOG) PER UNIT SC SCH ×4 (08:16→21:00)
[2021-09-02] MEDS: OMEPRAZOLE 20MG CAP PO SCH (08:16)
[2021-09-02] MEDS: TRIAMCINOLONE ACET 0.1% CREAM 80 GM EXT SCH ×2 (08:17→23:01)
[2021-09-02] MEDS ORDERED: MAG SULF 1GM/100ML (MAG RUN) 1 GM in IV 1 EA IV ONE (09:00)
[2021-09-02] MEDS ORDERED: POTASSIUM PHOSPHATE INJ 15 MMOL in D5W 250 ML IV ONE (10:00)
[2021-09-02] MEDS ORDERED: SODIUM PHOSPHATE INJ 30 MMOL in D5W 500 ML IV ONE (11:00)
[2021-09-02] MEDS ORDERED: ISOVUE-370 76% 100ML VIAL As Ordered ONE (11:48)
[2021-09-02] MEDS ORDERED: GASTROGRAFIN SOLUTION 30ML (Q9963) As Ordered ONE (11:48)
[2021-09-02] MEDS ORDERED: K-PHOS ORIGINAL (POT.ACID PHOSPHATE) 500MG TAB PO ONE (12:00)
[2021-09-02 12:57] LABS: C REACTIVE PROTEIN QUANTITATIV 8.61 MG/DL (0.00-0.30)
[2021-09-02 14:00] VITALS: BP 130/72
[2021-09-02] MEDS: SENNA 8.6 MG TAB (SENOKOT) PO SCH (21:00)
[2021-09-02 22:00] VITALS: BP 129/72
[2021-09-02] MEDS: ATORVASTATIN 10 MG TAB PO SCH (23:00)
[2021-09-02] MEDS: LEVEMIR (INSULIN DETEMIR) 1 UNITS/0.01ML SC SCH (23:01)
[2021-09-02] MEDS: MORPHINE 2 MG/ML 1ML VIAL IV PRN (23:16)
[2021-09-03] MEDS: HEPARIN SOD (PORCINE) 5000UNITS/ML 1ML VIAL/SYRINGE SC SCH ×4 (05:08→21:56)
[2021-09-03 06:00] VITALS: BP 145/84
[2021-09-03 06:01] LABS: BASO % 0.4 % (0.0-1.0); EOS % 0.2 % (0.0-3.0); HEMATOCRIT 33.9 % (36.0-47.0); HEMOGLOBIN 11.6 g/dl (12.0-15.5); LYMPH # 1.5 10^3/uL (1.5-5.0); LYMPH % 26.6 % (24.0-44.0); MEAN CORPUSCULAR HEMOGLOBIN 29.9 pg (27.0-33.0); MEAN CORPUSCULAR HGB CONC 34.2 g/dl (32.0-36.5); MEAN CORPUSCULAR VOLUME 87.4 fl (80.0-96.0); MONO # 0.4 10^3/uL (0.0-0.8); MONO % 7.6 % (2.0-8.0); NEUTROPHILS # 3.4 10^3/uL (1.5-8.5); NEUTROPHILS % 62.1 % (36.0-66.0); PLATELET COUNT, AUTOMATED 258 10^3/uL (150-450); RED BLOOD COUNT 3.88 10^6/uL (4.00-5.40); WHITE BLOOD COUNT 5.5 10^3/uL (4.0-10.0)
[2021-09-03] MEDS: MEROPENEM INJ 1 GM in IV 1 EA IV SCH ×3 (06:02→21:55)
[2021-09-03 06:30] LABS: BLOOD UREA NITROGEN 5 MG/DL (7-18); CALCIUM LEVEL 8.6 MG/DL (8.5-10.1); CARBON DIOXIDE LEVEL 30 MEQ/L (21-32); CHLORIDE LEVEL 105 MEQ/L (98-107); CREATININE FOR GFR 0.51 MG/DL (0.55-1.30); GLOMERULAR FILTRATION RATE > 60.0 (>51); GLUCOSE, FASTING 212 MG/DL (70-100); MAGNESIUM LEVEL 1.9 MG/DL (1.8-2.4); POTASSIUM SERUM 3.7 MEQ/L (3.5-5.1); SODIUM LEVEL 143 MEQ/L (136-145)
[2021-09-03] MEDS: ADVAIR HFA 115/21MCG INHALER INH SCH ×2 (08:00→18:59)
[2021-09-03] MEDS: PALIPERIDONE 6 MG ER TAB (INVEGA) PO SCH (08:22)
[2021-09-03] MEDS: FLUCONAZOLE 100 MG TAB PO SCH (08:22)
[2021-09-03] MEDS: OMEPRAZOLE 20MG CAP PO SCH (08:22)
[2021-09-03] MEDS: DESVENLAFAXINE ER 50 MG TABLET (PRISTIQ) PO SCH (08:23)
[2021-09-03] MEDS: oxyBUTYnin 5 MG TAB PO SCH (08:23)
[2021-09-03] MEDS: TRIAMCINOLONE ACET 0.1% CREAM 80 GM EXT SCH ×2 (08:24→21:56)
[2021-09-03] MEDS: INSULIN LISPRO (NovoLOG) PER UNIT SC SCH ×4 (08:24→21:00)
[2021-09-03 14:00] VITALS: BP 129/72
[2021-09-03 16:07] LABS: PHOSPHORUS LEVEL 2.5 MG/DL (2.5-4.9)
[2021-09-03] MEDS: ATORVASTATIN 10 MG TAB PO SCH (21:54)
[2021-09-03] MEDS: LEVEMIR (INSULIN DETEMIR) 1 UNITS/0.01ML SC SCH (21:54)
[2021-09-03 22:00] VITALS: BP 125/65
[2021-09-04 06:00] VITALS: BP 140/84
[2021-09-04] MEDS ORDERED: LevoFLOXacin 750 MG TABLET PO SCH (06:00)
[2021-09-04] MEDS: HEPARIN SOD (PORCINE) 5000UNITS/ML 1ML VIAL/SYRINGE SC SCH ×2 (06:00→13:20)
[2021-09-04 06:15] LABS: BASO % 0.5 % (0.0-1.0); EOS % 0.3 % (0.0-3.0); HEMATOCRIT 36.6 % (36.0-47.0); HEMOGLOBIN 12.2 g/dl (12.0-15.5); LYMPH # 1.6 10^3/uL (1.5-5.0); LYMPH % 27.9 % (24.0-44.0); MEAN CORPUSCULAR HEMOGLOBIN 29.1 pg (27.0-33.0); MEAN CORPUSCULAR HGB CONC 33.3 g/dl (32.0-36.5); MEAN CORPUSCULAR VOLUME 87.4 fl (80.0-96.0); MONO # 0.4 10^3/uL (0.0-0.8); MONO % 7.1 % (2.0-8.0); NEUTROPHILS # 3.6 10^3/uL (1.5-8.5); NEUTROPHILS % 61.6 % (36.0-66.0); PLATELET COUNT, AUTOMATED 275 10^3/uL (150-450); RED BLOOD COUNT 4.19 10^6/uL (4.00-5.40); WHITE BLOOD COUNT 5.8 10^3/uL (4.0-10.0)
[2021-09-04] MEDS: metroNIDAZOLE (FLAGYL) 500MG TABLET PO SCH ×2 (06:19→12:18)
[2021-09-04 06:38] LABS: BLOOD UREA NITROGEN 5 MG/DL (7-18); CALCIUM LEVEL 8.7 MG/DL (8.5-10.1); CARBON DIOXIDE LEVEL 31 MEQ/L (21-32); CHLORIDE LEVEL 104 MEQ/L (98-107); GLOMERULAR FILTRATION RATE > 60.0 (>51); GLUCOSE, FASTING 196 MG/DL (70-100); POTASSIUM SERUM 3.2 MEQ/L (3.5-5.1); SODIUM LEVEL 141 MEQ/L (136-145)
[2021-09-04] MEDS: ADVAIR HFA 115/21MCG INHALER INH SCH (07:21)
[2021-09-04] MEDS: DESVENLAFAXINE ER 50 MG TABLET (PRISTIQ) PO SCH (07:50)
[2021-09-04] MEDS: OMEPRAZOLE 20MG CAP PO SCH (07:50)
[2021-09-04] MEDS: INSULIN LISPRO (NovoLOG) PER UNIT SC SCH ×2 (07:50→12:18)
[2021-09-04] MEDS: FLUCONAZOLE 100 MG TAB PO SCH (07:50)
[2021-09-04] MEDS: oxyBUTYnin 5 MG TAB PO SCH (07:50)
[2021-09-04] MEDS: PALIPERIDONE 6 MG ER TAB (INVEGA) PO SCH (07:50)
[2021-09-04] MEDS: TRIAMCINOLONE ACET 0.1% CREAM 80 GM EXT SCH (07:51)
[2021-09-04] MEDS ORDERED: FLUC100T3 PO (11:34)
[2021-09-04] MEDS ORDERED: TRIA1CR80 EXT (11:34)
[2021-09-04] MEDS ORDERED: LEVO750T13 PO (11:36)
[2021-09-04] MEDS ORDERED: POTASSIUM CHLORIDE 10MEQ SR TABLET PO ONE (12:00)
== END 2021-09-04 15:01 | DRG 602 ==
LOC: M ED 19:49 → EDBD 19:49 → M ED INP 22:26 → M ICU 08-28 00:10 → M PCU 08-28 16:48 → M MSPAV 09-01 17:09
PROVIDERS: ADMIT Internal Medicine; ATTEND Internal Medicine
PROC: 0Y910ZZ Drainage of Left Buttock, Open Approach (ICD-10-PCS; principal; 2021-08-27 22:09)
DX: L02.31 Cutaneous abscess of buttock (principal); E11.10 Type 2 diabetes mellitus with ketoacidosis without coma; B49 Unspecified mycosis; J45.909 Unspecified asthma, uncomplicated; F17.210 Nicotine dependence, cigarettes, uncomplicated; K60.3 Anal fistula; E83.39 Other disorders of phosphorus metabolism; K21.9 Gastro-esophageal reflux disease without esophagitis; E78.5 Hyperlipidemia, unspecified; F25.0 Schizoaffective disorder, bipolar type; E87.6 Hypokalemia; E83.42 Hypomagnesemia; R32 Unspecified urinary incontinence; J44.9 Chronic obstructive pulmonary disease, unspecified; B95.1 Streptococcus, group B, as the cause of diseases classified elsewhere; Z91.14 Patient's other noncompliance with medication regimen; L21.9 Seborrheic dermatitis, unspecified; Z79.899 Other long term (current) drug therapy; Z88.0 Allergy status to penicillin; Z91.018 Allergy to other foods; Z88.6 Allergy status to analgesic agent; Z88.8 Allergy status to other drugs, medicaments and biological substances

== ENCOUNTER → 2021-12-31 | Outpatient (REF) | payer MEDICARE, MEDICAID ==
[~2021-12-31] MED LIST changes: +ADV250INH INH; +DESV100T PO; +FLUC100T3 PO; +IBUP-1764 PO; +INSULANT SC; +INVE6TAB3 PO; +LEVO1TAB40 PO; -LEVO750T13 PO; +OMEP-173 PO; +OXYB5TAB10 PO; +TRIA1CR80 EXT
[2021-12-31 19:02] LABS: CREATININE, URINE 95.8 MG/DL; MALB URINE SIEMENS 9.5 MG/L; MAU/CREAT RATIO 9.9 MCG/MG (0.0-30.0)
== END ==
LOC: M LAB REF 16:21
PROVIDERS: ATTEND Physician Assistant
DX: E11.65 Type 2 diabetes mellitus with hyperglycemia (principal)

== ENCOUNTER → 2022-02-12 | Outpatient (REF) | payer MEDICARE, MEDICAID ==
[2022-02-12 18:13] LABS: BASO % 0.6 % (0.0-1.0); EOS # 0.4 10^3/uL (0.0-0.5); HEMATOCRIT 44.2 % (36.0-47.0); HEMOGLOBIN 14.3 g/dl (12.0-15.5); LYMPH # 1.5 10^3/uL (1.5-5.0); LYMPH % 21.2 % (24.0-44.0); MEAN CORPUSCULAR HEMOGLOBIN 28.3 pg (27.0-33.0); MEAN CORPUSCULAR HGB CONC 32.4 g/dl (32.0-36.5); MEAN CORPUSCULAR VOLUME 87.5 fl (80.0-96.0); MONO # 0.3 10^3/uL (0.0-0.8); MONO % 3.6 % (2.0-8.0); NEUTROPHILS % 69.3 % (36.0-66.0); PLATELET COUNT, AUTOMATED 238 10^3/uL (150-450); RED BLOOD COUNT 5.05 10^6/uL (4.00-5.40); WHITE BLOOD COUNT 7.2 10^3/uL (4.0-10.0)
[2022-02-12 20:26] LABS: FERRITIN 64.7 NG/ML (7.3-270.7)
[2022-02-12 20:27] LABS: PERCENT SATURATION 25.9 % (13.2-45.0)
== END ==
LOC: M LAB REF 17:21
PROVIDERS: ATTEND Physician Assistant
DX: R71.8 Other abnormality of red blood cells (principal)

== ENCOUNTER → 2022-03-28 | Outpatient (REF) | payer MEDICARE, MEDICAID ==
[2022-03-28 16:45] LABS: HEMATOCRIT 43.9 % (36.0-47.0); HEMOGLOBIN 14.3 g/dl (12.0-15.5); MEAN CORPUSCULAR HEMOGLOBIN 28.5 pg (27.0-33.0); MEAN CORPUSCULAR HGB CONC 32.6 g/dl (32.0-36.5); MEAN CORPUSCULAR VOLUME 87.6 fl (80.0-96.0); PLATELET COUNT, AUTOMATED 239 10^3/uL (150-450); RED BLOOD COUNT 5.01 10^6/uL (4.00-5.40); WHITE BLOOD COUNT 10.5 10^3/uL (4.0-10.0)
[2022-03-28 17:13] LABS: ALKALINE PHOSPHATASE 69 U/L (46-116); ALT/SGPT 10 U/L (7.0-40); AST/SGOT < 8 U/L (<34); BILIRUBIN,TOTAL 0.5 MG/DL (0.3-1.2); BLOOD UREA NITROGEN 18 MG/DL (9-23); CALCIUM LEVEL 9.6 MG/DL (8.5-10.1); CARBON DIOXIDE LEVEL 28 MMOL/L (20-31); CHLORIDE LEVEL 105 MMOL/L (98-107); CHOLESTEROL LEVEL 155 MG/DL (<200); CHOLESTEROL RISK RATIO 4.14 (<5); CREATININE FOR GFR 0.93 MG/DL (0.55-1.30); GLOMERULAR FILTRATION RATE > 60.0 (>51); GLUCOSE, FASTING 145 MG/DL (60-100); HDL CHOLESTEROL 37.4 MG/DL (>40); LDL CHOLESTEROL 96.4 MG/DL (<100); NON-HDL-C 118 MG/DL; POTASSIUM SERUM 4.9 MMOL/L (3.5-5.1); SODIUM LEVEL 140 MMOL/L (136-145); TOTAL PROTEIN 6.6 G/DL (5.7-8.2); TRIGLYCERIDES LEVEL 106 MG/DL (<150)
[2022-03-28 18:19] LABS: HEMOGLOBIN A1c 5.3 % (4.0-6.0)
== END ==
LOC: M LAB REF 16:20
PROVIDERS: ATTEND Physician Assistant
DX: E11.65 Type 2 diabetes mellitus with hyperglycemia (principal); E78.5 Hyperlipidemia, unspecified

== ENCOUNTER → 2022-05-16 | Outpatient (CLI) | payer MEDICARE, MEDICAID | LOC: M PLAIMG 14:45 | PROVIDERS: ATTEND Physician Assistant | DX: M62.81 Muscle weakness (generalized) (principal); M48.061 Spinal stenosis, lumbar region without neurogenic claudication ==

== ENCOUNTER → 2022-07-04 | Outpatient (REF) | payer MEDICARE, MEDICAID ==
[2022-07-04 17:30] LABS: BLOOD UREA NITROGEN 16 MG/DL (9-23); CALCIUM LEVEL 8.6 MG/DL (8.5-10.1); CARBON DIOXIDE LEVEL 30 MMOL/L (20-31); CHLORIDE LEVEL 105 MMOL/L (98-107); GLOMERULAR FILTRATION RATE > 60.0 (>51); GLUCOSE, FASTING 90 MG/DL (60-100); POTASSIUM SERUM 4.7 MMOL/L (3.5-5.1); SODIUM LEVEL 141 MMOL/L (136-145)
== END ==
LOC: M LAB REF 16:13
PROVIDERS: ATTEND Physician Assistant
DX: E11.65 Type 2 diabetes mellitus with hyperglycemia (principal)

== ENCOUNTER → 2022-09-05 | Outpatient (REF) | payer MEDICARE, MEDICAID ==
[~2022-09-05] MED LIST changes: +POTA-298 PO; -POTA1TAB14 PO
[2022-09-05 17:21] LABS: CREATININE, URINE 44.3 MG/DL
== END ==
LOC: M LAB REF 16:26
PROVIDERS: ATTEND Physician Assistant
DX: E11.65 Type 2 diabetes mellitus with hyperglycemia (principal)

== ENCOUNTER 2023-07-01 09:25 | Inpatient (IN) | payer MEDICARE, MEDICAID ==
[~2023-07-01] VITALS: Ht 154.9 cm; Wt 91.1 kg
[~2023-07-01 09:25] MED LIST changes: +GLIP5TAB17 PO; -GLIP5TAB8 PO; -OXYB5TAB10 PO; +OXYB5TAB14 PO
[2023-07-01] MEDS ORDERED: QUET300T2 PO (09:43)
[2023-07-01] MEDS ORDERED: JANU100T PO (09:43)
[2023-07-01] MEDS ORDERED: ULTRA (09:43)
[2023-07-01 10:16] LABS: VENOUS BASE EXCESS -0.9 (-2.0-2.0); VENOUS PARTIAL PRESSURE CO2 45.8 mmHg (38.0-50.0); VENOUS PARTIAL PRESSURE O2 19.9 mmHg (30.0-50.0); VENOUS PH 7.355 UNITS (7.330-7.430); VENOUS TOTAL CO2 26.4 MMOL/L (24.0-28.0)
[2023-07-01 10:24] LABS: BASO % 0.3 % (0.0-1.0); EOS # 0.1 10^3/uL (0.0-0.5); EOS % 0.6 % (0.0-3.0); HEMATOCRIT 45.9 % (36.0-47.0); HEMOGLOBIN 15.9 g/dl (12.0-15.5); LYMPH # 1.1 10^3/uL (1.5-5.0); LYMPH % 8.8 % (24.0-44.0); MEAN CORPUSCULAR HEMOGLOBIN 28.9 pg (27.0-33.0); MEAN CORPUSCULAR HGB CONC 34.6 g/dl (32.0-36.5); MEAN CORPUSCULAR VOLUME 83.3 fl (80.0-96.0); MONO # 0.6 10^3/uL (0.0-0.8); MONO % 4.7 % (2.0-8.0); NEUTROPHILS # 10.6 10^3/uL (1.5-8.5); NEUTROPHILS % 85.1 % (36.0-66.0); PLATELET COUNT, AUTOMATED 308 10^3/uL (150-450); RED BLOOD COUNT 5.51 10^6/uL (4.00-5.40); WHITE BLOOD COUNT 12.4 10^3/uL (4.0-10.0)
[2023-07-01 10:40] LABS: OSMOLALITY SERUM 293 MOSM/KG (275-295)
[2023-07-01 10:43] LABS: LIPASE 19 U/L (12-53)
[2023-07-01 10:45] LABS: ACETONE/KETONE 0.29 MMOL/L (0.02-0.27)
[2023-07-01 10:48] LABS: HEMOGLOBIN A1c 7.9 % (4.0-6.0)
[2023-07-01 10:53] LABS: ALBUMIN 3.4 G/DL (3.2-5.2); ALKALINE PHOSPHATASE 144 U/L (46-116); ALT/SGPT < 9 U/L (7.0-40); AST/SGOT 12 U/L (<34); BILIRUBIN,DIRECT 0.6 MG/DL (<0.4); BILIRUBIN,TOTAL 1.6 MG/DL (0.3-1.2); BLOOD UREA NITROGEN 11 MG/DL (9-23); CALCIUM LEVEL 9.1 MG/DL (8.5-10.1); CARBON DIOXIDE LEVEL 27 MMOL/L (20-31); CHLORIDE LEVEL 95 MMOL/L (98-107); CREATININE FOR GFR 1.03 MG/DL (0.55-1.30); GLOMERULAR FILTRATION RATE 59.4 (>51); GLUCOSE, FASTING 437 MG/DL (60-100); MAGNESIUM LEVEL 1.7 MG/DL (1.8-2.4); POTASSIUM SERUM 4.9 MMOL/L (3.5-5.1); SODIUM LEVEL 129 MMOL/L (136-145); TOTAL PROTEIN 6.5 G/DL (5.7-8.2)
[2023-07-01] MEDS: MAGNESIUM OXIDE 400MG TAB (MAG-OX) PO ONE (13:00)
[2023-07-01] MEDS: ONDANSETRON 4MG 2ML VIAL IV ONE (13:00)
[2023-07-01] MEDS: HumuLIN R (REGULAR) INSULIN (NovoLIN R) **100U/ML** PER UNIT SC STA (13:00)
[2023-07-01] MEDS: NYSTATIN 100,000 UNITS/GM TOPICAL PWD 15GM TOP ONE (14:00)
[2023-07-01] MEDS: PERMETHRIN 5% CREAM 60 GM TOP ONE (14:01)
[2023-07-01] MEDS: ACETAMINOPHEN 500 MG TAB PO ONE (14:01)
[2023-07-01] MEDS ORDERED: MED REC IN PROGRESS XX SCH (14:35)
[2023-07-01] MEDS: ceFAZolin SOD 1 GM in D5W MINI-BAG PLUS 50 ML IV ONE (15:02)
[2023-07-01] MEDS: NS 1,000 ML IV ONE ×2 (15:02→21:55)
[2023-07-01] MEDS ORDERED: VANCOMYCIN HCL 1,000 MG, VIAL MATE ADAPTER 1 EACH in NS 250 ML IV ONE (15:25)
[2023-07-01] MEDS ORDERED: VANCOMYCIN HCL 1,000 MG, VIAL MATE ADAPTER 1 EACH in D5W 250 ML IV ONE (15:40)
[2023-07-01] MEDS: LEVEMIR (INSULIN DETEMIR) 1 UNITS/0.01ML SC ONE (16:24)
[2023-07-01] MEDS: INSULIN LISPRO (NovoLOG) PER UNIT SC STA (16:25)
[2023-07-01] MEDS ORDERED: NYSTATIN OINTMENT 15 GM TOP SCH (17:00)
[2023-07-01] MEDS: VANCOMYCIN HCL 1,000 MG, VIAL MATE ADAPTER 1 EACH in D5W 250 ML IV ONE (17:42)
[2023-07-01 17:49] LABS: PROCALCITONIN 0.27 ng/ml
[2023-07-01] MEDS: INSULIN LISPRO (NovoLOG) PER UNIT SC SCH (18:20)
[2023-07-01] MEDS ORDERED: JARD1TAB PO (18:28)
[2023-07-01] MEDS ORDERED: BENA25CA4 PO (18:28)
[2023-07-01] MEDS ORDERED: HOME MED LIST COMPLETE! XX SCH (18:30)
[2023-07-01] MEDS: NS 1,000 ML IV SCH ×2 (19:13→22:52)
[2023-07-01] MEDS: VANCOMYCIN HCL 750 MG, VIAL MATE ADAPTER 1 EACH in D5W 250 ML IV ONE (19:14)
[2023-07-01 20:49] VITALS: BP 142/82; TEMP 96.8; O2SAT 98
[2023-07-01] MEDS ORDERED: LEVEMIR (INSULIN DETEMIR) 1 UNITS/0.01ML SC SCH (21:00)
[2023-07-01] MEDS: ENOXAPARIN 40MG/0.4ML SYRINGE (J1650 PER 10MG) SC ONE (21:30)
[2023-07-01 21:52] LABS: BLOOD UREA NITROGEN 11 MG/DL (9-23); CALCIUM LEVEL 7.8 MG/DL (8.5-10.1); CARBON DIOXIDE LEVEL 28 MMOL/L (20-31); CHLORIDE LEVEL 101 MMOL/L (98-107); CREATININE FOR GFR 0.93 MG/DL (0.55-1.30); GLOMERULAR FILTRATION RATE > 60.0 (>51); GLUCOSE, FASTING 110 MG/DL (60-100); MAGNESIUM LEVEL 1.6 MG/DL (1.8-2.4); POTASSIUM SERUM 3.9 MMOL/L (3.5-5.1); SODIUM LEVEL 137 MMOL/L (136-145)
[2023-07-01] MEDS: LEVEMIR (INSULIN DETEMIR) 1 UNITS/0.01ML SC SCH (21:54)
[2023-07-01] MEDS: LACTOBACILLUS ACIDOPHILUS CAP (BACID) PO SCH (21:56)
[2023-07-01] MEDS: NYSTATIN CREAM 15GM TOP SCH (22:53)
[2023-07-01] MEDS: TRIAMCINOLONE ACETONIDE 0.025% 80GM CREAM TOP SCH (22:54)
[2023-07-01 23:23] VITALS: BP 138/80; TEMP 96.9; O2SAT 97
[2023-07-01] MEDS: ceFAZolin SOD 2 GM in IV 1 EA IV SCH (23:51)
[2023-07-01] MEDS: QUEtiapine FUMARATE 100 MG TAB PO SCH (23:55)
[2023-07-02 03:38] VITALS: BP 122/76; TEMP 97.1; O2SAT 99
[2023-07-02 04:02] LABS: BLOOD UREA NITROGEN 8 MG/DL (9-23); CALCIUM LEVEL 7.3 MG/DL (8.5-10.1); CARBON DIOXIDE LEVEL 24 MMOL/L (20-31); CHLORIDE LEVEL 106 MMOL/L (98-107); CREATININE FOR GFR 0.74 MG/DL (0.55-1.30); GLOMERULAR FILTRATION RATE > 60.0 (>51); GLUCOSE, FASTING 183 MG/DL (60-100); POTASSIUM SERUM 3.8 MMOL/L (3.5-5.1); SODIUM LEVEL 138 MMOL/L (136-145)
[2023-07-02 05:47] LABS: HEMATOCRIT 33.6 % (36.0-47.0); MEAN CORPUSCULAR HEMOGLOBIN 28.9 pg (27.0-33.0); MEAN CORPUSCULAR HGB CONC 35.1 g/dl (32.0-36.5); MEAN CORPUSCULAR VOLUME 82.2 fl (80.0-96.0); PLATELET COUNT, AUTOMATED 225 10^3/uL (150-450); RED BLOOD COUNT 4.09 10^6/uL (4.00-5.40); WHITE BLOOD COUNT 7.8 10^3/uL (4.0-10.0)
[2023-07-02 05:52] LABS: HEMOGLOBIN 11.8 g/dl (12.0-15.5)
[2023-07-02] MEDS: SITagliptin 50 MG TAB (JANUVIA) PO SCH (08:08)
[2023-07-02] MEDS: LEVEMIR (INSULIN DETEMIR) 1 UNITS/0.01ML SC SCH (08:10)
[2023-07-02 08:29] VITALS: BP 121/73; TEMP 97; O2SAT 100
[2023-07-02 11:37] VITALS: BP 115/54; TEMP 97; O2SAT 100
[2023-07-02] MEDS: INSULIN LISPRO (NovoLOG) PER UNIT SC SCH ×2 (12:00→21:00)
[2023-07-02] MEDS ORDERED: DIFL200T PO (14:14)
[2023-07-02] MEDS ORDERED: INSUDET SC (14:16)
[2023-07-02] MEDS: DESVENLAFAXINE ER 50MG TABLET (PRISTIQ) PO SCH (14:18)
[2023-07-02] MEDS: PALIPERIDONE 6MG ER TAB (INVEGA) PO SCH (14:18)
[2023-07-02] MEDS ORDERED: CEPH500T PO (14:19)
[2023-07-02] MEDS ORDERED: TRIA25CR TOP (14:19)
[2023-07-02] MEDS ORDERED: NYST1POW9 TOP (14:19)
[2023-07-02] MEDS ORDERED: BACI1CAP PO (14:20)
[2023-07-02 15:50] VITALS: BP 117/67; TEMP 97.9; O2SAT 100
[2023-07-02] MEDS: FLUCONAZOLE 200 MG in IV 1 EA IV SCH (16:57)
[2023-07-02] MEDS: ENOXAPARIN 40MG/0.4ML SYRINGE (J1650 PER 10MG) SC SCH (21:00)
[2023-07-02 21:07] VITALS: BP 96/60; TEMP 97.9; O2SAT 97
[2023-07-02] MEDS: NORCO, ANEXSIA 5/325MG TABLET (HYDROcodone/ACETAMINOPHEN) PO PRN (23:07)
[2023-07-03 05:03] VITALS: BP 116/77; TEMP 97.9; O2SAT 97
[2023-07-03 10:14] LABS: BASO % 0.4 % (0.0-1.0); EOS # 0.1 10^3/uL (0.0-0.5); EOS % 1.4 % (0.0-3.0); HEMATOCRIT 34.4 % (36.0-47.0); HEMOGLOBIN 11.8 g/dl (12.0-15.5); LYMPH % 19.1 % (24.0-44.0); MEAN CORPUSCULAR HEMOGLOBIN 28.7 pg (27.0-33.0); MEAN CORPUSCULAR HGB CONC 34.3 g/dl (32.0-36.5); MEAN CORPUSCULAR VOLUME 83.7 fl (80.0-96.0); MONO # 0.3 10^3/uL (0.0-0.8); MONO % 5.2 % (2.0-8.0); NEUTROPHILS # 3.8 10^3/uL (1.5-8.5); NEUTROPHILS % 73.1 % (36.0-66.0); PLATELET COUNT, AUTOMATED 217 10^3/uL (150-450); RED BLOOD COUNT 4.11 10^6/uL (4.00-5.40); WHITE BLOOD COUNT 5.2 10^3/uL (4.0-10.0)
[2023-07-03] MEDS: LEVEMIR (INSULIN DETEMIR) 1 UNITS/0.01ML SC SCH (10:28)
[2023-07-03 10:48] LABS: BLOOD UREA NITROGEN < 5 MG/DL (9-23); CARBON DIOXIDE LEVEL 27 MMOL/L (20-31); CHLORIDE LEVEL 104 MMOL/L (98-107); CREATININE FOR GFR 0.76 MG/DL (0.55-1.30); GLOMERULAR FILTRATION RATE > 60.0 (>51); GLUCOSE, FASTING 224 MG/DL (60-100); POTASSIUM SERUM 3.4 MMOL/L (3.5-5.1); SODIUM LEVEL 136 MMOL/L (136-145)
[2023-07-03 11:19] VITALS: BP 110/74
[2023-07-03] MEDS: MUPIROCIN 2% OINT 22 GM TUBE TOP SCH (13:00)
[2023-07-03] MEDS: NYSTATIN CREAM 15GM TOP SCH (13:01)
[2023-07-03 14:00] VITALS: BP 109/68; TEMP 97.3; O2SAT 98
[2023-07-03] MEDS: NYSTATIN 100,000 UNITS/GM TOPICAL PWD 15GM TOP SCH (16:00)
[2023-07-03] MEDS ORDERED: GLUCAGON INJ 1MG VIAL SC PRN (17:00)
[2023-07-03] MEDS ORDERED: DEXTROSE 50% 50ML SYRINGE IV PRN (17:00)
[2023-07-03] MEDS ORDERED: GLUCOSE 4 GM CHEW PO PRN (17:00)
[2023-07-03] MEDS: DEXTROSE 50% 50ML SYRINGE IV STA (17:27)
[2023-07-03 20:01] VITALS: BP 131/71; TEMP 99.5; O2SAT 98
[2023-07-03] MEDS: diphenhydrAMINE 25MG CAP PO PRN (22:47)
[2023-07-04 00:19] VITALS: TEMP 97.3
[2023-07-04 05:59] VITALS: BP 129/73; O2SAT 97
[2023-07-04 06:08] VITALS: TEMP 97.5
[2023-07-04 06:08] LABS: BASO % 0.2 % (0.0-1.0); EOS % 0.9 % (0.0-3.0); HEMATOCRIT 33.6 % (36.0-47.0); HEMOGLOBIN 11.3 g/dl (12.0-15.5); LYMPH # 0.9 10^3/uL (1.5-5.0); LYMPH % 20.1 % (24.0-44.0); MEAN CORPUSCULAR HEMOGLOBIN 28.5 pg (27.0-33.0); MEAN CORPUSCULAR HGB CONC 33.6 g/dl (32.0-36.5); MEAN CORPUSCULAR VOLUME 84.6 fl (80.0-96.0); MONO # 0.3 10^3/uL (0.0-0.8); MONO % 6.1 % (2.0-8.0); NEUTROPHILS # 3.3 10^3/uL (1.5-8.5); PLATELET COUNT, AUTOMATED 227 10^3/uL (150-450); RED BLOOD COUNT 3.97 10^6/uL (4.00-5.40); WHITE BLOOD COUNT 4.6 10^3/uL (4.0-10.0)
[2023-07-04 06:10] VITALS: TEMP 96
[2023-07-04 06:36] LABS: BLOOD UREA NITROGEN 6 MG/DL (9-23); CARBON DIOXIDE LEVEL 26 MMOL/L (20-31); CHLORIDE LEVEL 105 MMOL/L (98-107); CREATININE FOR GFR 0.75 MG/DL (0.55-1.30); GLOMERULAR FILTRATION RATE > 60.0 (>51); GLUCOSE, FASTING 130 MG/DL (60-100); SODIUM LEVEL 139 MMOL/L (136-145)
[2023-07-04] MEDS ORDERED: FLUCONAZOLE 200 MG in IV 1 EA IV SCH (09:00)
[2023-07-04 14:00] VITALS: BP 124/69; TEMP 97.2; O2SAT 97
[2023-07-04 14:04] LABS: COMPLEMENT C3 115.6 MG/DL (90.0-170.0); COMPLEMENT C4 29.9 MG/DL (12-36); RHEUMATOID FACTOR QUANT 3.5 IU/ML (<14)
[2023-07-04 14:46] LABS: HEPATITIS B CORE ANTIBODY IGM NEGATIVE (NEGATIVE)
[2023-07-04 14:47] LABS: HEPATITIS C VIRUS ABY INDEX < 0.02 INDEX (<0.8)
[2023-07-04 20:12] VITALS: BP 125/68; TEMP 96.8; O2SAT 98
[2023-07-05] MEDS: TRIAMCINOLONE ACET 0.1% CREAM 80GM TOP SCH (01:34)
[2023-07-05] MEDS: NYSTATIN OINTMENT 15 GM TOP SCH (01:34)
[2023-07-05 05:38] VITALS: BP 127/71; TEMP 96.4; O2SAT 98
[2023-07-05 06:14] LABS: BASO % 0.5 % (0.0-1.0); EOS % 1.1 % (0.0-3.0); HEMATOCRIT 34.8 % (36.0-47.0); HEMOGLOBIN 11.7 g/dl (12.0-15.5); LYMPH # 0.7 10^3/uL (1.5-5.0); LYMPH % 18.9 % (24.0-44.0); MEAN CORPUSCULAR HEMOGLOBIN 28.9 pg (27.0-33.0); MEAN CORPUSCULAR HGB CONC 33.6 g/dl (32.0-36.5); MEAN CORPUSCULAR VOLUME 85.9 fl (80.0-96.0); MONO # 0.2 10^3/uL (0.0-0.8); NEUTROPHILS # 2.8 10^3/uL (1.5-8.5); NEUTROPHILS % 74.4 % (36.0-66.0); PLATELET COUNT, AUTOMATED 220 10^3/uL (150-450); RED BLOOD COUNT 4.05 10^6/uL (4.00-5.40); WHITE BLOOD COUNT 3.8 10^3/uL (4.0-10.0)
[2023-07-05 06:49] LABS: BLOOD UREA NITROGEN 6 MG/DL (9-23); CALCIUM LEVEL 8.2 MG/DL (8.5-10.1); CARBON DIOXIDE LEVEL 27 MMOL/L (20-31); CHLORIDE LEVEL 104 MMOL/L (98-107); GLOMERULAR FILTRATION RATE > 60.0 (>51); GLUCOSE, FASTING 131 MG/DL (60-100); POTASSIUM SERUM 3.9 MMOL/L (3.5-5.1); SODIUM LEVEL 139 MMOL/L (136-145)
[2023-07-05] MEDS: LEVEMIR (INSULIN DETEMIR) 1 UNITS/0.01ML SC SCH (08:18)
[2023-07-05] MEDS: SENOKOT S TAB PO SCH (09:00)
[2023-07-05] MEDS: MIRALAX *UNIT DOSE* 17GM PACKET PO SCH (09:00)
[2023-07-05] MEDS ORDERED: BISACODYL 10MG SUPP PR PRN (11:35)
[2023-07-05 14:00] VITALS: BP 129/71; TEMP 97.5; O2SAT 90
[2023-07-05 14:13] LABS: CRYOGLOBULINS NEGATIVE (NEGATIVE)
[2023-07-05 20:57] VITALS: BP 148/86; TEMP 97.5; O2SAT 99
[2023-07-06 05:03] VITALS: BP 147/86; TEMP 96.3; O2SAT 98
[2023-07-06 05:30] VITALS: TEMP 96.8
[2023-07-06 06:50] LABS: BASO % 0.3 % (0.0-1.0); EOS % 0.8 % (0.0-3.0); HEMATOCRIT 35.6 % (36.0-47.0); HEMOGLOBIN 11.7 g/dl (12.0-15.5); LYMPH # 0.8 10^3/uL (1.5-5.0); LYMPH % 20.3 % (24.0-44.0); MEAN CORPUSCULAR HEMOGLOBIN 28.3 pg (27.0-33.0); MEAN CORPUSCULAR HGB CONC 32.9 g/dl (32.0-36.5); MONO # 0.2 10^3/uL (0.0-0.8); NEUTROPHILS # 2.9 10^3/uL (1.5-8.5); NEUTROPHILS % 73.1 % (36.0-66.0); PLATELET COUNT, AUTOMATED 231 10^3/uL (150-450); RED BLOOD COUNT 4.14 10^6/uL (4.00-5.40)
[2023-07-06 07:20] LABS: BLOOD UREA NITROGEN 7 MG/DL (9-23); CALCIUM LEVEL 8.5 MG/DL (8.5-10.1); CARBON DIOXIDE LEVEL 28 MMOL/L (20-31); CHLORIDE LEVEL 103 MMOL/L (98-107); CREATININE FOR GFR 0.71 MG/DL (0.55-1.30); GLOMERULAR FILTRATION RATE > 60.0 (>51); GLUCOSE, FASTING 142 MG/DL (60-100); POTASSIUM SERUM 3.9 MMOL/L (3.5-5.1); SODIUM LEVEL 139 MMOL/L (136-145)
[2023-07-06] MEDS: FAMOTIDINE 20 MG TAB PO SCH (10:05)
[2023-07-06] MEDS: predniSONE 20 MG TAB PO SCH (10:05)
[2023-07-06] MEDS: FLUCONAZOLE 100 MG TAB PO SCH (13:04)
[2023-07-06 13:16] LABS: ANTI DOUBLE STRAND-DNA AB <1 IU/mL (0-9); ANTINUCLEAR ANTIBODIES DIRECT Positive (Negative); RNP ANTIBODIES <0.2 AI (0.0-0.9); SJOGREN'S ANTI SS-A <0.2 AI (0.0-0.9); SJOGREN'S ANTI SS-B 1.4 AI (0.0-0.9); SMITH ANTIBODIES <0.2 AI (0.0-0.9)
[2023-07-06 14:00] VITALS: BP 150/90; TEMP 98.1; O2SAT 97
[2023-07-06] MEDS: LEVEMIR (INSULIN DETEMIR) 1 UNITS/0.01ML SC ONE (17:57)
[2023-07-06 21:01] VITALS: BP 150/89; TEMP 97.7; O2SAT 98
[2023-07-06] MEDS: CEFDINIR 300 MG CAP (OMNICEF) PO SCH (21:11)
[2023-07-06] MEDS: DOXYCYCLINE HYCLATE 100MG TABLET PO SCH (21:12)
[2023-07-07 04:23] VITALS: BP 147/90; TEMP 97.3; O2SAT 98
[2023-07-07 06:33] LABS: BASO % 0.3 % (0.0-1.0); EOS % 0.2 % (0.0-3.0); HEMATOCRIT 35.9 % (36.0-47.0); LYMPH # 0.8 10^3/uL (1.5-5.0); MEAN CORPUSCULAR HEMOGLOBIN 28.3 pg (27.0-33.0); MEAN CORPUSCULAR HGB CONC 33.4 g/dl (32.0-36.5); MEAN CORPUSCULAR VOLUME 84.7 fl (80.0-96.0); MONO # 0.2 10^3/uL (0.0-0.8); MONO % 3.4 % (2.0-8.0); NEUTROPHILS # 5.1 10^3/uL (1.5-8.5); NEUTROPHILS % 81.5 % (36.0-66.0); PLATELET COUNT, AUTOMATED 268 10^3/uL (150-450); RED BLOOD COUNT 4.24 10^6/uL (4.00-5.40); WHITE BLOOD COUNT 6.2 10^3/uL (4.0-10.0)
[2023-07-07 07:10] LABS: BLOOD UREA NITROGEN 7 MG/DL (9-23); CALCIUM LEVEL 9.2 MG/DL (8.5-10.1); CARBON DIOXIDE LEVEL 29 MMOL/L (20-31); CHLORIDE LEVEL 100 MMOL/L (98-107); CREATININE FOR GFR 0.69 MG/DL (0.55-1.30); GLOMERULAR FILTRATION RATE > 60.0 (>51); GLUCOSE, FASTING 248 MG/DL (60-100); POTASSIUM SERUM 4.3 MMOL/L (3.5-5.1); SODIUM LEVEL 137 MMOL/L (136-145)
[2023-07-07] MEDS: LEVEMIR (INSULIN DETEMIR) 1 UNITS/0.01ML SC SCH (08:26)
[2023-07-07 14:00] VITALS: BP 156/86; TEMP 97.7; O2SAT 96
[2023-07-07 19:40] VITALS: BP 156/89; TEMP 97.7; O2SAT 100
[2023-07-08 05:13] VITALS: BP 151/89; TEMP 97.9; O2SAT 98
[2023-07-08 05:49] LABS: HEMATOCRIT 35.3 % (36.0-47.0); HEMOGLOBIN 12.1 g/dl (12.0-15.5); MEAN CORPUSCULAR HEMOGLOBIN 28.6 pg (27.0-33.0); MEAN CORPUSCULAR HGB CONC 34.3 g/dl (32.0-36.5); MEAN CORPUSCULAR VOLUME 83.5 fl (80.0-96.0); PLATELET COUNT, AUTOMATED 284 10^3/uL (150-450); RED BLOOD COUNT 4.23 10^6/uL (4.00-5.40); WHITE BLOOD COUNT 7.6 10^3/uL (4.0-10.0)
[2023-07-08 06:16] LABS: BLOOD UREA NITROGEN 11 MG/DL (9-23); CALCIUM LEVEL 8.9 MG/DL (8.5-10.1); CARBON DIOXIDE LEVEL 32 MMOL/L (20-31); CHLORIDE LEVEL 100 MMOL/L (98-107); CREATININE FOR GFR 0.76 MG/DL (0.55-1.30); GLOMERULAR FILTRATION RATE > 60.0 (>51); GLUCOSE, FASTING 208 MG/DL (60-100); POTASSIUM SERUM 4.5 MMOL/L (3.5-5.1); SODIUM LEVEL 135 MMOL/L (136-145)
[2023-07-08 06:47] LABS: ATYPICAL LYMPH 5 % (0-5); LYMPHOCYTES 15 % (16-44); MONOCYTES 4 % (0-5); NEUTROPHILS 76 % (28-66)
[2023-07-08 06:48] LABS: PLATELET ESTIMATE NORMAL (NORMAL)
[2023-07-08] MEDS: MOM 30ML SUSPENSION UDC PO PRN (08:12)
[2023-07-08 14:00] VITALS: BP 159/94; TEMP 97.5; O2SAT 99
[2023-07-08 19:50] VITALS: BP 159/93; TEMP 97.5; O2SAT 98
[2023-07-09 05:09] VITALS: BP 146/74; TEMP 98.2; O2SAT 97
[2023-07-09 05:49] LABS: BASO % 0.3 % (0.0-1.0); EOS % 0.1 % (0.0-3.0); HEMATOCRIT 37.9 % (36.0-47.0); HEMOGLOBIN 12.9 g/dl (12.0-15.5); LYMPH # 1.2 10^3/uL (1.5-5.0); LYMPH % 16.3 % (24.0-44.0); MEAN CORPUSCULAR HEMOGLOBIN 28.6 pg (27.0-33.0); MONO # 0.4 10^3/uL (0.0-0.8); MONO % 5.4 % (2.0-8.0); NEUTROPHILS # 5.3 10^3/uL (1.5-8.5); NEUTROPHILS % 71.9 % (36.0-66.0); PLATELET COUNT, AUTOMATED 254 10^3/uL (150-450); RED BLOOD COUNT 4.51 10^6/uL (4.00-5.40); WHITE BLOOD COUNT 7.4 10^3/uL (4.0-10.0)
[2023-07-09 06:23] LABS: BLOOD UREA NITROGEN 17 MG/DL (9-23); CALCIUM LEVEL 9.3 MG/DL (8.5-10.1); CARBON DIOXIDE LEVEL 32 MMOL/L (20-31); CHLORIDE LEVEL 96 MMOL/L (98-107); CREATININE FOR GFR 0.69 MG/DL (0.55-1.30); GLOMERULAR FILTRATION RATE > 60.0 (>51); GLUCOSE, FASTING 233 MG/DL (60-100); POTASSIUM SERUM 4.6 MMOL/L (3.5-5.1); SODIUM LEVEL 134 MMOL/L (136-145)
[2023-07-09] MEDS: LEVEMIR (INSULIN DETEMIR) 1 UNITS/0.01ML SC SCH ×2 (08:11→21:16)
[2023-07-09] MEDS: LIDOCAINE W/EPINEPHRINE 1% 20ML VIAL SC ONE (13:44)
[2023-07-09 14:00] VITALS: BP 139/74; TEMP 97.3; O2SAT 100
[2023-07-09 20:50] VITALS: BP 136/74; TEMP 97.7; O2SAT 99
[2023-07-10 05:36] LABS: BASO % 0.4 % (0.0-1.0); EOS % 0.3 % (0.0-3.0); HEMATOCRIT 36.8 % (36.0-47.0); HEMOGLOBIN 12.6 g/dl (12.0-15.5); LYMPH # 1.7 10^3/uL (1.5-5.0); LYMPH % 18.6 % (24.0-44.0); MEAN CORPUSCULAR HEMOGLOBIN 28.3 pg (27.0-33.0); MEAN CORPUSCULAR HGB CONC 34.2 g/dl (32.0-36.5); MEAN CORPUSCULAR VOLUME 82.7 fl (80.0-96.0); MONO # 0.5 10^3/uL (0.0-0.8); MONO % 5.9 % (2.0-8.0); NEUTROPHILS # 6.3 10^3/uL (1.5-8.5); NEUTROPHILS % 69.1 % (36.0-66.0); PLATELET COUNT, AUTOMATED 272 10^3/uL (150-450); RED BLOOD COUNT 4.45 10^6/uL (4.00-5.40); WHITE BLOOD COUNT 9.1 10^3/uL (4.0-10.0)
[2023-07-10 05:50] VITALS: BP 129/71; TEMP 97.9; O2SAT 98
[2023-07-10 06:03] LABS: BLOOD UREA NITROGEN 24 MG/DL (9-23); CALCIUM LEVEL 8.9 MG/DL (8.5-10.1); CARBON DIOXIDE LEVEL 31 MMOL/L (20-31); CHLORIDE LEVEL 97 MMOL/L (98-107); CREATININE FOR GFR 0.72 MG/DL (0.55-1.30); GLOMERULAR FILTRATION RATE > 60.0 (>51); GLUCOSE, FASTING 187 MG/DL (60-100); POTASSIUM SERUM 4.8 MMOL/L (3.5-5.1); SODIUM LEVEL 133 MMOL/L (136-145)
[2023-07-10] MEDS ORDERED: PRED20TA PO (13:51)
[2023-07-10] MEDS ORDERED: INSUDET SC ×2 (13:51)
[2023-07-10] MEDS ORDERED: MUPI2OI TOP (13:51)
[2023-07-10] MEDS ORDERED: DOXY100T PO (13:51)
[2023-07-10] MEDS ORDERED: FAMO20TA PO (13:51)
[2023-07-10] MEDS ORDERED: CEFD300CAP PO (13:51)
[2023-07-10] MEDS ORDERED: INSUHUMDS SC ×2 (13:51)
[2023-07-10 14:00] VITALS: BP 131/88; TEMP 97.5; O2SAT 99
[2023-07-10 20:09] LABS: ANTI DS-DNA AB Negative (Negative); ANTI SMITH(Sm) AB <20 Units (<20); COMPLEMENT TOTAL (CH50) > 60 U/mL (>41); RNP ANTIBODY < 0.2 AI (0.0-0.9); SMITHS ANTIBODY < 0.2 AI (0.0-0.9)
== END 2023-07-10 15:10 | disposition home or self-care (01) | DRG 607 ==
LOC: M ED 09:25 → M ED INP 15:19 → M PCU 20:52 → M MSPAV 07-02 15:43
PROVIDERS: ADMIT General Practice; ATTEND Hospitalist
PROC: 0HBCXZX Excision of Left Upper Arm Skin, External Approach, Diagnostic (ICD-10-PCS; principal; 2023-07-09)
DX: L95.9 Vasculitis limited to the skin, unspecified (principal); E87.1 Hypo-osmolality and hyponatremia; L03.114 Cellulitis of left upper limb; B49 Unspecified mycosis; B37.89 Other sites of candidiasis; E87.20 Acidosis, unspecified; J45.909 Unspecified asthma, uncomplicated; F25.0 Schizoaffective disorder, bipolar type; E78.5 Hyperlipidemia, unspecified; L40.9 Psoriasis, unspecified; K21.9 Gastro-esophageal reflux disease without esophagitis; F17.210 Nicotine dependence, cigarettes, uncomplicated; E80.6 Other disorders of bilirubin metabolism; E83.42 Hypomagnesemia; F41.8 Other specified anxiety disorders; E11.65 Type 2 diabetes mellitus with hyperglycemia; E11.649 Type 2 diabetes mellitus with hypoglycemia without coma; L01.09 Other impetigo; F43.10 Post-traumatic stress disorder, unspecified; Z91.148 Patient's other noncompliance with medication regimen for other reason; G47.00 Insomnia, unspecified; Z79.899 Other long term (current) drug therapy; Z88.0 Allergy status to penicillin; Z91.018 Allergy to other foods; Z88.6 Allergy status to analgesic agent; Z79.4 Long term (current) use of insulin

== ENCOUNTER 2023-07-20 16:06 | Emergency (ER) | payer MEDICARE, MEDICAID ==
[~2023-07-20] VITALS: Ht 154.9 cm; Wt 91.1 kg
[~2023-07-20 16:06] MED LIST changes: +BACI1CAP PO; +BENA25CA4 PO; +CEFD300CAP PO; +CEPH500T PO; +DIFL200T PO; +DOXY100T PO; +FAMO20TA PO; -GLIM1TAB4; +GLIM1TAB84; +INSUHUMDS SC; +JANU100T PO; +JARD1TAB PO; +MUPI2OI TOP; +NYST1POW9 TOP; +QUET300T2 PO; +TRIA25CR TOP; +ULTRA
[2023-07-20 16:08] VITALS: BP 156/68; TEMP 98.4; O2SAT 99
== END 2023-07-20 21:42 | disposition left against medical advice (07) ==
LOC: M ED 16:06
DX: Z53.21 Procedure and treatment not carried out due to patient leaving prior to being seen by health care provider (principal)

== ENCOUNTER 2023-09-22 18:25 | Emergency (ER) | payer MEDICARE, MEDICAID ==
[~2023-09-22] VITALS: Ht 154.9 cm; Wt 84.1 kg
[2023-09-22 21:53] LABS: BASO % 0.2 % (0.0-1.0); EOS # 0.2 10^3/uL (0.0-0.5); EOS % 1.9 % (0.0-3.0); HEMATOCRIT 45.4 % (36.0-47.0); HEMOGLOBIN 15.2 g/dl (12.0-15.5); LYMPH # 1.3 10^3/uL (1.5-5.0); LYMPH % 12.9 % (24.0-44.0); MEAN CORPUSCULAR HEMOGLOBIN 27.6 pg (27.0-33.0); MEAN CORPUSCULAR HGB CONC 33.5 g/dl (32.0-36.5); MEAN CORPUSCULAR VOLUME 82.4 fl (80.0-96.0); MONO # 0.3 10^3/uL (0.0-0.8); MONO % 3.5 % (2.0-8.0); NEUTROPHILS # 7.9 10^3/uL (1.5-8.5); NEUTROPHILS % 80.9 % (36.0-66.0); PLATELET COUNT, AUTOMATED 286 10^3/uL (150-450); RED BLOOD COUNT 5.51 10^6/uL (4.00-5.40); WHITE BLOOD COUNT 9.7 10^3/uL (4.0-10.0)
[2023-09-22 22:04] LABS: ERYTHROCYTE SEDIMENTATION RATE 12 mm/hr (0-30)
[2023-09-22 22:20] LABS: ALBUMIN 2.5 G/DL (3.2-5.2); ALKALINE PHOSPHATASE 165 U/L (46-116); ALT/SGPT 16 U/L (7.0-40); AST/SGOT 22 U/L (<34); BILIRUBIN,DIRECT 0.5 MG/DL (<0.4); BILIRUBIN,TOTAL 0.9 MG/DL (0.3-1.2); BLOOD UREA NITROGEN 7 MG/DL (9-23); CALCIUM LEVEL 8.1 MG/DL (8.5-10.1); CARBON DIOXIDE LEVEL 28 MMOL/L (20-31); CHLORIDE LEVEL 97 MMOL/L (98-107); CREATININE FOR GFR 0.87 MG/DL (0.55-1.30); GLOMERULAR FILTRATION RATE > 60.0 (>51); GLUCOSE, FASTING 183 MG/DL (60-100); POTASSIUM SERUM 3.4 MMOL/L (3.5-5.1); SODIUM LEVEL 133 MMOL/L (136-145); TOTAL PROTEIN 5.4 G/DL (5.7-8.2)
[2023-09-22 22:24] LABS: PROCALCITONIN 0.36 ng/ml
[2023-09-22] MEDS: ONDANSETRON 4MG 2ML VIAL IV ONE (22:47)
[2023-09-22] MEDS: NS 1,000 ML IV ONE (23:15)
[2023-09-22 23:33] LABS: HEMOGLOBIN A1c 7.5 % (4.0-6.0)
[2023-09-23] MEDS: NS 1,000 ML IV SCH (00:10)
[2023-09-23 08:44] VITALS: BP 125/68; TEMP 98.5; O2SAT 96
== END 2023-09-23 08:47 | disposition short-term general hospital (02) ==
LOC: EDBD 18:25 → M ED 18:25
DX: L30.9 Dermatitis, unspecified (principal); E11.9 Type 2 diabetes mellitus without complications; J44.9 Chronic obstructive pulmonary disease, unspecified; F43.10 Post-traumatic stress disorder, unspecified; J45.909 Unspecified asthma, uncomplicated; F25.9 Schizoaffective disorder, unspecified; E78.5 Hyperlipidemia, unspecified; L40.0 Psoriasis vulgaris; Z86.19 Personal history of other infectious and parasitic diseases; Z87.891 Personal history of nicotine dependence; Z79.84 Long term (current) use of oral hypoglycemic drugs; Z79.899 Other long term (current) drug therapy; Z88.0 Allergy status to penicillin; Z88.8 Allergy status to other drugs, medicaments and biological substances; Z91.018 Allergy to other foods
CPT/HCPCS: 80048; 80076; 83036; 84145; 85025; 85652; 86140; 87040; 87070; 87077; 87101; 87102; 87186; 87205; 87641; 99284; J2405

== ENCOUNTER 2023-10-31 13:07 | Inpatient (IN) | payer MEDICARE, MEDICAID ==
[~2023-10-31] VITALS: Ht 157.5 cm; Wt 82.7 kg
[2023-10-31] MEDS: NS 500 ML IV ONE (13:54)
[2023-10-31] MEDS: ONDANSETRON 4MG 2ML VIAL IV ONE (13:54)
[2023-10-31 14:00] LABS: BASO # 0.1 10^3/uL (0.0-0.2); BASO % 0.8 % (0.0-1.0); EOS # 0.2 10^3/uL (0.0-0.5); EOS % 2.7 % (0.0-3.0); HEMATOCRIT 43.5 % (36.0-47.0); HEMOGLOBIN 14.9 g/dl (12.0-15.5); LYMPH % 25.2 % (24.0-44.0); MEAN CORPUSCULAR HEMOGLOBIN 28.6 pg (27.0-33.0); MEAN CORPUSCULAR HGB CONC 34.3 g/dl (32.0-36.5); MEAN CORPUSCULAR VOLUME 83.5 fl (80.0-96.0); MONO # 0.4 10^3/uL (0.0-0.8); MONO % 4.9 % (2.0-8.0); NEUTROPHILS # 5.2 10^3/uL (1.5-8.5); PLATELET COUNT, AUTOMATED 292 10^3/uL (150-450); RED BLOOD COUNT 5.21 10^6/uL (4.00-5.40); WHITE BLOOD COUNT 7.8 10^3/uL (4.0-10.0)
[2023-10-31 14:13] LABS: ERYTHROCYTE SEDIMENTATION RATE 12 mm/hr (0-30); INR 1.13; PARTIAL THROMBOPLASTIN TIME 29.9 SECONDS (24.8-34.2); PROTHROMBIN TIME 14.1 SECONDS (12.5-14.5)
[2023-10-31 14:20] LABS: LIPASE 14 U/L (12-53)
[2023-10-31 14:21] LABS: AMYLASE 36 U/L (30-118)
[2023-10-31 14:22] LABS: ALBUMIN 2.1 G/DL (3.2-5.2); ALKALINE PHOSPHATASE 189 U/L (46-116); ALT/SGPT 21 U/L (7.0-40); AST/SGOT 18 U/L (<34); BILIRUBIN,DIRECT 0.5 MG/DL (<0.4); BLOOD UREA NITROGEN 7 MG/DL (9-23); CALCIUM LEVEL 7.6 MG/DL (8.5-10.1); CARBON DIOXIDE LEVEL 28 MMOL/L (20-31); CHLORIDE LEVEL 102 MMOL/L (98-107); CREATININE FOR GFR 0.95 MG/DL (0.55-1.30); GLOMERULAR FILTRATION RATE > 60.0 (>51); GLUCOSE, FASTING 124 MG/DL (60-100); POTASSIUM SERUM 3.5 MMOL/L (3.5-5.1); SODIUM LEVEL 137 MMOL/L (136-145); TOTAL PROTEIN 5.3 G/DL (5.7-8.2)
[2023-10-31 14:28] LABS: PROCALCITONIN 0.32 ng/ml
[2023-10-31] MEDS ORDERED: ISOVUE-370 76% 100ML VIAL As Ordered ONE (14:44)
[2023-10-31] MEDS: cefTRIAXone SOD 1 GM in D5W MINI-BAG PLUS 50 ML IV ONE (15:58)
[2023-10-31] MEDS: PANTOPRAZOLE 40MG VIAL IV ONE (17:03)
[2023-10-31] MEDS: NS 1,000 ML IV ONE (17:12)
[2023-10-31] MEDS ORDERED: MAALOX 30 ML SUSP *UDC PO PRN (17:35)
[2023-10-31] MEDS ORDERED: MOM 30ML SUSPENSION UDC PO PRN (17:35)
[2023-10-31] MEDS ORDERED: ACETAMINOPHEN TAB 650MG DOSE (2X325MG) PO PRN (17:35)
[2023-10-31] MEDS ORDERED: GLUCAGON INJ 1MG VIAL SC PRN (18:15)
[2023-10-31] MEDS ORDERED: DEXTROSE 50% 50ML SYRINGE IV PRN (18:15)
[2023-10-31] MEDS ORDERED: ALBUTEROL SULFATE 2.5MG/0.5ML INH NEB SOLN NEB PRN (18:15)
[2023-10-31] MEDS ORDERED: GLUCOSE 4 GM CHEW PO PRN (18:15)
[2023-10-31] MEDS ORDERED: ONDANSETRON 4MG 2ML VIAL IV PRN (18:30)
[2023-10-31] MEDS: INSULIN LISPRO (NovoLOG) PER UNIT SC SCH (21:00)
[2023-10-31] MEDS ORDERED: DESV100T3 PO (21:06)
[2023-10-31] MEDS ORDERED: INSU100I24 INJ (21:21)
[2023-10-31] MEDS ORDERED: ATOR1TAB19 PO (21:21)
[2023-10-31] MEDS ORDERED: HOME MED LIST COMPLETE! XX SCH (21:25)
[2023-10-31] MEDS: QUEtiapine FUMARATE 100 MG TAB PO SCH (22:12)
[2023-10-31] MEDS: SUCRALFATE SUSP 1GM/10ML UD PO SCH (22:13)
[2023-10-31 22:47] VITALS: BP 117/73; TEMP 97.2; O2SAT 98
[2023-11-01] MEDS: NS 1,000 ML IV SCH (00:03)
[2023-11-01 04:42] VITALS: BP 112/70; TEMP 97.3; O2SAT 98
[2023-11-01] MEDS: INSULIN LISPRO (NovoLOG) PER UNIT SC SCH (07:30)
[2023-11-01] MEDS: ENOXAPARIN 40MG/0.4ML SYRINGE (J1650 PER 10MG) SC SCH (09:00)
[2023-11-01] MEDS ORDERED: predniSONE 20 MG TAB PO SCH (09:00)
[2023-11-01] MEDS: TRIAMCINOLONE ACET 0.1% OINTMENT 80GM TOP SCH (09:02)
[2023-11-01] MEDS: cefTRIAXone SOD 1 GM in D5W MINI-BAG PLUS 50 ML IV SCH (09:02)
[2023-11-01] MEDS: LACTOBACILLUS ACIDOPHILUS CAP (BACID) PO SCH (09:03)
[2023-11-01] MEDS: PANTOPRAZOLE 40MG VIAL IV SCH (09:03)
[2023-11-01] MEDS: PALIPERIDONE 6MG ER TAB (INVEGA) PO SCH (09:03)
[2023-11-01] MEDS ORDERED: PANT40TA29 PO (11:06)
[2023-11-01] MEDS ORDERED: SUCR1ORA PO (11:06)
[2023-11-01 12:00] VITALS: BP 123/72; TEMP 97.5; O2SAT 99
[2023-11-01 20:00] VITALS: BP 119/65; TEMP 97.7; O2SAT 98
[2023-11-02 04:00] VITALS: BP 112/60; TEMP 97.5; O2SAT 98
[2023-11-02] MEDS: POTASSIUM CHLORIDE 10MEQ SR TABLET PO SCH (07:56)
[2023-11-02 12:00] VITALS: BP_SYST 133; BP_DIAS 133; BP_DIAS 68; TEMP 97.3; O2SAT 100
[2023-11-02] MEDS ORDERED: CEFD1CAP9 PO (12:11)
== END 2023-11-02 16:25 | disposition home or self-care (01) | DRG 392 ==
LOC: M ED 13:07 → EDBD 13:07 → M ED INP 17:34 → M MS5PR 22:48
PROVIDERS: ADMIT Student in an Organized Health Care Education/Training Program; ATTEND Hospitalist
DX: K20.90 Esophagitis, unspecified without bleeding (principal); N39.0 Urinary tract infection, site not specified; E11.9 Type 2 diabetes mellitus without complications; J44.9 Chronic obstructive pulmonary disease, unspecified; E78.5 Hyperlipidemia, unspecified; J45.909 Unspecified asthma, uncomplicated; F41.9 Anxiety disorder, unspecified; F31.9 Bipolar disorder, unspecified; I10 Essential (primary) hypertension; K29.70 Gastritis, unspecified, without bleeding; R21 Rash and other nonspecific skin eruption; Z79.4 Long term (current) use of insulin; Z79.82 Long term (current) use of aspirin; Z79.899 Other long term (current) drug therapy; Z88.0 Allergy status to penicillin; Z88.8 Allergy status to other drugs, medicaments and biological substances; Z88.6 Allergy status to analgesic agent; Z91.018 Allergy to other foods

== ENCOUNTER → 2024-01-11 | Outpatient (CLI) | payer MEDICARE, MEDICAID ==
[~2024-01-11] MED LIST changes: +CEFD1CAP9 PO; +DESV100T3 PO; +INSU100I24 INJ; +PANT40TA29 PO; +SUCR1ORA PO
== END ==
LOC: M RAD 11:14
PROVIDERS: ATTEND Physician Assistant
DX: R11.2 Nausea with vomiting, unspecified (principal); K30 Functional dyspepsia
CPT/HCPCS: 78264; A9541

== ENCOUNTER 2024-01-28 00:26 | Emergency (ER) | payer MEDICAID, MEDICARE, OTHER ==
[~2024-01-28] VITALS: Ht 154.9 cm; Wt 77.3 kg
[~2024-01-28 00:26] MED LIST changes: +NYST1POW3 TOP; -NYST1POW9 TOP
[2024-01-28] MEDS: ANEXSIA, NORCO 7.5MG/325MG TABLET(HYDROCODONE/APAP) PO ONE (01:34)
[2024-01-28 01:48] LABS: HEMATOCRIT 41.6 % (36.0-47.0); HEMOGLOBIN 14.9 g/dl (12.0-15.5); MEAN CORPUSCULAR HEMOGLOBIN 30.7 pg (27.0-33.0); MEAN CORPUSCULAR HGB CONC 35.8 g/dl (32.0-36.5); MEAN CORPUSCULAR VOLUME 85.8 fl (80.0-96.0); PLATELET COUNT, AUTOMATED 245 10^3/uL (150-450); RED BLOOD COUNT 4.85 10^6/uL (4.00-5.40); WHITE BLOOD COUNT 24.9 10^3/uL (4.0-10.0)
[2024-01-28 02:10] LABS: ATYPICAL LYMPH 3 % (0-5); LYMPHOCYTES 2 % (16-44); MONOCYTES 3 % (0-5); NEUTROPHILS 90 % (28-66); PLATELET ESTIMATE NORMAL (NORMAL)
[2024-01-28] MEDS: HYDROMORPHONE HCL 0.5 MG/ 0.5 ML SYRINGE IM ONE (02:12)
[2024-01-28] MEDS ORDERED: HYDROmorphone 2 MG TAB XX ONE (02:30)
[2024-01-28] MEDS: NS 1,000 ML IV ONE (02:40)
[2024-01-28] MEDS: ONDANSETRON 4MG 2ML VIAL IV ONE (03:00)
[2024-01-28] MEDS: HYDROMORPHONE HCL 0.5 MG/ 0.5 ML SYRINGE IV PRN (03:00)
[2024-01-28 03:01] LABS: ERYTHROCYTE SEDIMENTATION RATE 7 mm/hr (0-30)
[2024-01-28] MEDS: HEPARIN SOD (PORCINE) 5000UNITS/ML 1ML VIAL/SYRINGE IV ONE (03:02)
[2024-01-28] MEDS: HEPARIN DRIP 25,000 UNITS in IV 1 EA IV SCH (03:03)
[2024-01-28 03:09] VITALS: TEMP 96.6
[2024-01-28 03:15] LABS: APPEARANCE, URINE HAZY (CLEAR); BACTERIA, URINE AUTO 1+ (NEGATIVE); BILIRUBIN, URINE AUTO NEGATIVE (NEGATIVE); BLOOD, URINE BLOOD 2+ (NEGATIVE); COLOR, URINE AMBER (YELLOW); GLUCOSE, URINE (UA) AUTO NEGATIVE (NEGATIVE); KETONE, URINE AUTO NEGATIVE (NEGATIVE); LEUKOCYTE ESTERASE, URINE AUTO 2+ (NEGATIVE); MUCUS, URINE SMALL (NEGATIVE); NITRITE, URINE AUTO NEGATIVE (NEGATIVE); PROTEIN, URINE AUTO 1+ mg/dL (NEGATIVE); RBC, URINE AUTO 10 /HPF (0-3); SQUAMOUS EPITHELIAL CELL UR AU 0 /HPF (0-6); WBC, URINE AUTO 144 /HPF (0-3)
[2024-01-28 03:24] LABS: INR 1.57
[2024-01-28 03:31] VITALS: BP 132/57; O2SAT 98
[2024-01-28 03:31] LABS: ALBUMIN 1.6 G/DL (3.2-5.2); ALKALINE PHOSPHATASE 158 U/L (35-104); ALT/SGPT 14 U/L (7.0-40); AMYLASE < 20 U/L (30-118); AST/SGOT 34 U/L (<34); BILIRUBIN,DIRECT 0.5 MG/DL (<0.4); BILIRUBIN,TOTAL 0.9 MG/DL (0.3-1.2); BLOOD UREA NITROGEN 33 MG/DL (9-23); CALCIUM LEVEL 7.3 MG/DL (8.5-10.1); CARBON DIOXIDE LEVEL 14 MMOL/L (20-31); CHLORIDE LEVEL 86 MMOL/L (98-107); CK-MB VALUE MASS 1.6 NG/ML (<3.6); CPK CREATINE PHOSPHOKINASE 354 U/L (34-145); GLOMERULAR FILTRATION RATE 38.5 (>51); GLUCOSE, FASTING 308 MG/DL (60-100); MB/CK RELATIVE INDEX 0.45 (< OR =4); POTASSIUM SERUM 4.3 MMOL/L (3.5-5.1); SODIUM LEVEL 114 MMOL/L (136-145); TOTAL PROTEIN 4.6 G/DL (5.7-8.2)
== END 2024-01-29 10:43 | disposition short-term general hospital (02) ==
LOC: M ED 00:26
DX: I74.3 Embolism and thrombosis of arteries of the lower extremities (principal); I70.213 Atherosclerosis of native arteries of extremities with intermittent claudication, bilateral legs; L03.115 Cellulitis of right lower limb; L03.116 Cellulitis of left lower limb; L51.1 Stevens-Johnson syndrome; J44.9 Chronic obstructive pulmonary disease, unspecified; E10.9 Type 1 diabetes mellitus without complications; I10 Essential (primary) hypertension; E78.5 Hyperlipidemia, unspecified; K57.92 Diverticulitis of intestine, part unspecified, without perforation or abscess without bleeding; F41.9 Anxiety disorder, unspecified; F32.A Depression, unspecified; Z87.891 Personal history of nicotine dependence; Z79.4 Long term (current) use of insulin; Z79.899 Other long term (current) drug therapy; Z88.0 Allergy status to penicillin; Z88.8 Allergy status to other drugs, medicaments and biological substances; Z91.018 Allergy to other foods
CPT/HCPCS: 71045; 80047; 80048; 80076; 81001; 82150; 82550; 82553; 84145; 84484; 85025; 85610; 85652; 85730; 86140; 86850; 86900; 86901; 87040; 87077; 87088; 87154; 87186; 87486; 87581; 87633; 87798; 93005; 93041; 93976; 94760; 96372; 96374; 96375; 96376; 99291; J1171; J2405